=== PATIENT | female | born 1955 | race Caucasian/White ===

== ENCOUNTER 2019-06-05 00:10 | Inpatient (IN) ==
--- OUTSIDE RECORDS SUMMARY | 2019-06-05 01:03 | External Medical Summary | Continuity of Care Document ---
:1955 Author Name Tanya Marcum, Provider Address Unavailable Unavailable , Care Team Providers Name Role Phone Non[facility]PG MJazzy, Provider Unavailable [email or web address] Unavailable Unavailable Unavailable Unavailable Problems Encounter for routine gynecological examination (V72.31) (Z0 1.419) Non-smoker (V49.89) (Z78.9) Inconclusive mammogram (793.82) (R92.2) Nephrolithiasis (592.0) (N20.0) Allergies and Adverse Reactions Codeine Derivatives (Allergy) Morphine Derivatives (Allergy) Medications Benicar 20 MG Oral Tablet Refills: 0 hydroCHLOROthiazide 12.5 MG Oral Tablet Refills: 0 Metoprolol Tartrate 50 MG Oral Tablet Refills: 0 Lipitor TABS Refills: 0 Zoloft TABS Refills: 0 Procedures History of Parathyroid Complete Parathyroidectomy Status: Completed History of Hysteroscopy With Resection For Intrauterine Poly p Status: Completed Removal Immunizations Immunizations not documented Family History natural daughter Family history of Thyroid Cancer Status: Active Father Family history of Prostate Cancer (V16.42) Status: Active Plan of Treatment Planned Observations Planned Goals not documented Results No Known Results Results not documented Encounters Appointment; Marcell Girard M.D. 18-Aug-2018 11:00 Encounter Diagnosis: Problem not documented
--- NOTE | 2019-06-05 01:11 | History & Physical Report ---
Date of Service June 05, 2019 Assessment & Plan (1) Vertigo: Ms. Irvin is a 64 year old female with a past medical history of hypertension, hyperlipidemia, and hyperparathyroidism who presents to [facility] as a direct transfer from [facility] for concern for CVA, after initially presenting there with vertigo, nausea and vomiting. ER course in [place]: 5mg IV Reglan, 1L NS bolus, 4mg IV Zofran Labs: WCC 7.7, Hgb 12.5, Platelets 221. Na 143, K 3.5, Cl 103, BUN 27, Creatinine 1.7, Glucose 159, Ca 9.2, AST 17, ALT 32, Albumin 3.8, Alk phos 134, Trop negative. Mg 1.8. Ammonia <11 TSH 3.64, Free T4 0.94 BNP negative Prothrombin time 11.8, INR 1, PTT 29.[address] chest - chronic bronchitis Noncontrast CT brain - WNL ECHO in 2016 - Normal LV function, grade 1 diastolic dysfunction Vertigo -CT head negative -concern for stroke initially given ?left sided facial droop -neuro examination normal, with the exception of b/l horizontal nystagmus -MRI brain and MRA head and neck WNL per statrad report -ddx: vestibular neuronitis, acute labyrinthitis, Meniere's -continue supportive care w/anti-emetics & IVF -trial of meclizine -4mg zofran IV q6h and 1L LR bolus ordered w/maintenance LR at 120 mls/hr x1 bag afterwards ?Acute Kidney Injury -creatinine 1.7 on admission, unsure of baseline -continue IVF hydration and recheck BMP in AM Cough -CT chest negative for infection -afebrile, normal WCC, no oxygen requirement -likely viral in etiology -continue prn albuterol Hypertension -continue home metoprolol -> pt states that she takes 50mg daily instead of BID -hold home olmesartan and HCTZ given ?ALESSANDRA and dehydration due to vomiting and diarrhea Hyperlipidemia -continue home atorvastatin Depression -continue home sertraline Code status: Full DVT Prophylaxis: SCDs Disposition: admit to telemetry (2) Vomiting: (3) Hypertension: (4) Hyperlipidemia: (5) Cough: (6) Elevated serum creatinine: History of Present Illness Chief Complaint: Vertigo Primary Care Provider: Estevan Cuba Ms. Irvin is a 64 year old female with a past medical history of hypertension, hyperlipidemia, and hyperparathyroidism who presents to [facility] as a direct transfer from [facility] for concern for CVA. She presented to [facility] for vertigo, starting 2 hours prior to her arrival. [place] experienced the sudden onset of vertigo, at approximately 7:30PM on 06/04/2019. She states that her symptoms have not abated since. She endorses several episodes of vomiting in conjunction with the vertigo. She reports that her symptoms are worse with movement or when she has her eyes open. She also reports 3 episodes of diarrhea today, in addition to abdominal cramping, which have since resolved. She denies a past history of vertigo. She denies focal weakness, difficulty with speech,hearing or tinnitus. She reports she has been unwell recently with a productive cough, for which she is using her albuterol inhaler. She denies fever or chills. She denies any recent tick bites. Per her family, there was question of a potential left sided facial droop while she was in the [place] ED, however her family states that they did not feel that she had a facial droop. She denies any recent travel, or consumption of new foods. PMHX: hypertension, hyperlipidemia, depression and hyperparathyroidism PSHx: D&C, Removal of 2 parathyroid glands Medications: Atorvastatin 40mg daily, HCTZ 12.5mg daily, 50mg metoprolol tartrate BID, 40mg Olmesartan daily, 50mg Sertraline daily Allergies: Morphine SHx: Non-smoker, infrequent alcohol usage, does not use recreational drugs. Allergies Allergy/AdvReac Type Severity Reaction Status Date / Time morphine Allergy Unknown Verified 06/05/19 01:47 Home Medications Home Medications Medication Instructions Recorded Confirmed Type atorvastatin 40 mg PO DAILY 06/05/19 06/05/19 History hydrochlorothiazide 12.5 mg PO DAILY 06/05/19 06/05/19 History metoprolol tartrate [Lopressor] 50 mg PO BID 06/05/19 06/05/19 History sertraline [Zoloft] 50 mg PO DAILY 06/05/19 06/05/19 History Past Med/Surg History Medical History Hyperlipidemia Hypertension Social History Communication Ability: Effective Court Deputy Required: No Beliefs That Will Affect Care: None Current Living Situation: Spouse Feels Safe at Home: Yes Safety Concerns: Feels Safe At This Time Smoking Status: Never smoker Hx Alcohol Use: Yes Hx Substance Use: No Review of Systems Constitutional: no fever and no chills Ear, Nose, Mouth, Throat: + dizziness and + dry mouth; no tinnitus and no sore throat Respiratory: + cough, + chest congestion and + sputum production; no dyspnea and no wheezing Cardiovascular: no chest pain, no lightheadedness, no syncope, no edema and no calf pain Gastrointestinal: + abdominal pain, + nausea, + vomiting and + diarrhea/loose stools Genitourinary: no dysuria Integumentary: no rash Physical Exam Constitutional: WD/WN, vitals as above cooperative uncomfortable, keeping her eyes closed. Vomited x1 during my examination Eyes: PERRL, conjunctivae normal, anicteric sclerae ENMT: external ear and nose normal, oropharynx normal (dry mucous membranes) Respiratory: normal respiratory effort, lungs clear to auscultation Cardiovascular: RRR, no murmur, no edema Gastrointestinal (Abdomen): normal bowel sounds, soft, nontender, no hepatosplenomegaly Musculoskeletal: no cyanosis or clubbing, extremities motor strength 5/5 Skin: no rashes, warm and dry Neurologic: PERRL, EOMI, accommodation nl, no face palsy, no dysarthria moves all extremities and awake Motor/Sensory: no tremor and no pronator drift finger to nose test normal horizontal nystagmus bilaterally Cranial nerves 2-12 otherwise grossly intact Psychiatric: A+Ox3, euthymic affect Code Status & VTE Plan VTE Prophylaxis Plan VTE Prophylaxis will be ordered: Yes Supervising Physician Co-Signing Physician Notes Patient was seen and examined by me personally. I reviewed the chart, the orders and discussed the case in detail with Dr. Tamra Luciano MD. I read this H&P and agree with its contents to entirety. PG Care Time/CCT Total # of Minutes Spent Total Time Spent with Patient: Total time spent is greater than 50% in coordination of care (as documented) at patient's floor/unit and/or counseling patient: Resident Activity Tracking Resident Involvement: Resident Care Provided Care Provided: Adult Hospital Medicine
[2019-06-05] MEDS ORDERED: ACETAMINOPHEN 325 MG TAB PO PRN (01:21)
[2019-06-05] MEDS ORDERED: ONDANSETRON INJ 2 MG/ML 2 ML VIAL ONE (03:00)
[2019-06-05] MEDS ORDERED: LACTATED RINGER'S 1,000 ML IV ONE (03:12)
[2019-06-05] MEDS ORDERED: MECLIZINE HCL 25 MG TAB PO PRN (03:30)
[2019-06-05] MEDS ORDERED: LACTATED RINGER'S 1,000 ML IV SCH (03:30)
[2019-06-05] MEDS ORDERED: ONDANSETRON INJ 2 MG/ML 2 ML VIAL IV PRN (03:30)
[2019-06-05] MEDS ORDERED: GADOBUTROL 65ML VIAL IV PRN (03:37)
[2019-06-05] MEDS ORDERED: ALBUTEROL HFA 8 GM INHALER INH PRN (03:44)
[2019-06-05 06:20] LABS: Basophils # (auto) 0.01 K/uL (0-0.2); Basophils % (auto) 0.1 %; Eosinophils # (auto) 0.01 K/uL (0-0.5); Eosinophils % (auto) 0.1 %; Hematocrit (blood only) 34.6 % (37-47); Hemoglobin 11.1 g/dL (12.0-16.0); Immature Granulocytes # (auto) 0.01 K/uL (0.00-0.02); Immature Granulocytes % (auto) 0.1 %; Lymphocytes # (auto) 0.95 K/uL (1.2-3.4); Lymphocytes % (auto) 11.2 %; Mean Corpuscular Hemoglobin 27.7 pg (25-34); Mean Corpuscular Hgb Conc 32.1 g/dL (32-36); Mean Corpuscular Volume 86.3 fL (80-100); Monocytes # (auto) 0.42 K/uL (0.11-0.59); Neutrophils # (auto) 7.05 K/uL (1.4-6.5); Neutrophils % (auto) 83.5 %; Platelet Count 184 K/uL (130-400); RDW Coefficient of Variation 14.8 % (11.5-14.5); RDW Standard Deviation 47.2 fL (36.4-46.3); Red Blood Count 4.01 M/uL (4.2-5.4); White Blood Count 8.45 K/uL (4.8-10.8)
--- NOTE | 2019-06-05 06:51 | Magnetic Resonance Report ---
NECK MRA HISTORY: Facial droop, vertigo. Suspected stroke. Vomiting. TECHNIQUE: Parc-sm-nrqzre and gadolinium-enhanced MRA of the neck was performed both before and after the intravenous administration of contrast. All measurements were calculated based on NASCET criteri a. COMPARISON STUDY: None. FINDINGS: The aortic arch and proximal great vessels are widely patent. There is no significant sten osis, occlusion, or dissection identified within the bilateral common carotid, internal carotid, or v ertebral arteries. IMPRESSION: No significant stenosis, occlusion, or dissection identified within the carotid or vertebral arteries . Electronically signed by: Beni Chopra M.D. 06/05/2019 6:50 AM
[2019-06-05 06:57] LABS: Albumin Level 3.3 gm/dl (3.4-5.0); BUN Creatinine Ratio 15.3 (10-20); Calcium 8.5 mg/dl (8.5-10.1); Creatinine Clr Calc Pharmacy 44.7 ml/min; Est GFR (African American) 49.7; Est GFR (Non-African American) 42.9; Potassium 3.7 mmol/L (3.5-5.1)
[2019-06-05 06:59] LABS: Bilirubin,Total 0.4 mg/dl (0.2-1); Globulin 3.2 gm/dl (2.5-4.0); Total Protein 6.5 gm/dl (6.4-8.2)
--- NOTE | 2019-06-05 07:23 | Magnetic Resonance Report ---
MR angio head wo con HISTORY: 64 years-old Female facial droop, vertigo, r/o CVA . Acute strokelike symptoms COMPARISON: MRI brain 06/05/2019 TECHNIQUE: MRA of the head was obtained without the use of IV contrast utilizing 3-D [id number] s equencing with MIP reformats. All measurements were obtained according to NASCET criteria. FINDINGS: Imaged bilateral internal carotid arteries are widely patent and unremarkable. The middle and anterio r cerebral arteries also appear normal and patent. The anterior communicating artery appears normal. The imaged bilateral vertebral arteries, basilar and posterior cerebral arteries appear patent. No an eurysm, dissection, high-grade stenosis or proximal branch occlusion. IMPRESSION: Unremarkable MRA of the head. The above report was generated using voice recognition software. It may contain grammatical, syntax o r spelling errors. Electronically signed by: Kurtis Dumont M.D. 06/05/2019 7:21 AM
--- NOTE | 2019-06-05 07:56 | Magnetic Resonance Report ---
MR brain wo/w con CLINICAL HISTORY: 64 years-old Female presenting with vertigo, nausea, history of recent fall with he ad injury. TECHNIQUE: Multisequence, multiplanar MR imaging of the brain was performed before and after the admi nistration of intravenous contrast. IV contrast: 8.3 mL of Gadavist. COMPARISON: None. FINDINGS: Localizer images: Unremarkable. Bone marrow signal intensity within the calvarium within normal limits. Normal midline sagittal structures. Ventricles and sulci normal in size. No mass effect or midline sh ift. No restricted diffusion or hemorrhage. Brain parenchyma normal in appearance with preserved borges -white differentiation. No abnormal parenchymal enhancement. No extra-axial fluid collection. T2 skull base flow voids preserved. IMPRESSION: 1. No acute intracranial pathology. No abnormal enhancement. These findings were discussed with Dr. Luciano by Dr. Barcenas on 06/05/2019 3:27 AM. Electronically signed by: Addy Gregorio M.D. 06/05/2019 7:54 AM
[2019-06-05] MEDS ORDERED: INFLUENZA ADMINISTRATION CHARGE ONE (08:15)
[2019-06-05] MEDS ORDERED: INFLUENZA VIRUS QUAD VACCINE 0.5 ML SYR IM ONE (08:15)
[2019-06-05] MEDS: METOPROLOL TARTRATE 50 MG TAB PO SCH (08:42)
[2019-06-05] MEDS: ATORVASTATIN 40 MG TAB PO SCH (08:42)
[2019-06-05] MEDS: SERTRALINE HCL 50 MG TABLET PO SCH (08:42)
--- NOTE | 2019-06-05 09:25 | Hospitalist Progress Note ---
Date of Service June 05, 2019 Assessment & Plan (1) Vertigo: Continue admit to PCU on telemetry for vestibular neuronitis versus acute labyrinthitis or Mnire disease CT head negative neuro examination normal, with the exception of b/l horizontal nystagmus MRI brain and MRA head and neck WNL per statrad report Continue meclizine 25 mg 4 times daily Continue supportive care w/anti-emetics & IVF 4mg zofran IV q6h and 1L LR bolus ordered w/maintenance LR at 120 mls/hr x1 bag afterwards Present on Admission?: Yes (2) Vomiting: Above (3) Hypertension: Continue home metoprolol -> pt states that she takes 50mg daily instead of BID Hold home olmesartan and HCTZ given ALESSANDRA and dehydration due to vomiting and diarrhea Present on Admission?: Yes (4) Hyperlipidemia: Continue home dose of atorvastatin Present on Admission?: Yes (5) Cough: Cough is related to pneumonia Started treatment for community-acquired pneumonia with ceftriaxone and doxycycline Duo nebs every 4 hours Advair twice daily Present on Admission?: Yes (6) Acute kidney injury: Avoid nephrotoxic agents. Monitor creatinine and GFR. Present on Admission?: Yes Subjective Patient seen and examined at the bedside Patient seen and examined at the bedside. She arrived here from [facility] with a concern for CVA after initially presented with vertigo, nausea and vomiting. CT of the head was negative and initial concern of left-sided facial droop was cleared because patient neurological exam continued to be normal for exception of having horizontal nystagmus. MRI of the brain and neck was also within normal limits. At this morning I received a critical value from the [facility] report patient also had an CT pneumonia versus atelectasis. Patient reports as soon as she opens her eyes he starts feeling nausea and have spinning. Patient denies fever, chills, chest pain, shortness of breath, abdominal pain, frequency, urgency. Review of Systems Review of Systems: All systems reviewed & are unremarkable except as noted in HPI & below Physical Exam Constitutional: WD/WN, vitals as above well developed Eyes: PERRL, conjunctivae normal, anicteric sclerae Horizontal nystagmus ENMT: external ear and nose normal, oropharynx normal Neck: trachea midline, no thyromegaly Respiratory: Auscultation: + crackles (Right lower lobe) and + wheezes Cardiovascular: Heart Sounds: normal S1, normal S2 and + murmur Vessels: dorsalis pedis pulses present Gastrointestinal (Abdomen): normal bowel sounds, soft, nontender, no hepatosplenomegaly Musculoskeletal: no cyanosis or clubbing, extremities motor strength 5/5 Skin: no rashes, warm and dry Neurologic: patellar DTR's 2+ bilat, sensation intact Psychiatric: A+Ox3, euthymic affect Lymphatic: no cervical or axillary lymphadenopathy Results & Data Vital Signs (Past 12 Hours) Vital Signs Temp Pulse Resp BP Pulse Ox Pulse Ox 06/05/19 06:54 36.8 C 65 18 156/80 H 99 06/05/19 04:00 95 06/05/19 03:44 36.9 C 79 16 159/82 H 91 06/05/19 01:00 36.9 C 79 20 170/93 H 91 PG Care Time/CCT Total # of Minutes Spent Total Time Spent with Patient: Total time spent is greater than 50% in coordination of care (as documented) at patient's floor/unit and/or counseling patient:
[2019-06-05] MEDS ORDERED: SODIUM CHLORIDE 0.9% 1000ML 1,000 ML IV SCH (09:30)
[2019-06-05] MEDS: MECLIZINE HCL 25 MG TAB PO SCH ×4 (09:50→21:46)
[2019-06-05] MEDS: cefTRIAXone SODIUM 2,000 MG in DEXTROSE 5% 50 ML IV SCH (09:50)
[2019-06-05] MEDS: DOXYCYCLINE HYCLATE 100 MG in DEXTROSE 5% 100 ML IV SCH ×2 (10:52→21:56)
[2019-06-05] MEDS: ALBUT/IPRATROP 3MG/0.5MG NEB 3 ML VIAL NEB SCH ×2 (19:29→23:18)
[2019-06-05] MEDS: FLUTICASONE/SALMETEROL 250/50 (ADVAIR) 14 PUFF/1 INHALER INH SCH (21:47)
[2019-06-05] MEDS: HEPARIN SOD 5,000 UNIT/0.5 ML VIAL SQ SCH (21:48)
[2019-06-06] MEDS: ALBUT/IPRATROP 3MG/0.5MG NEB 3 ML VIAL NEB SCH ×6 (03:09→23:07)
[2019-06-06 07:11] LABS: Basophils # (auto) 0.01 K/uL (0-0.2); Basophils % (auto) 0.2 %; Eosinophils # (auto) 0.09 K/uL (0-0.5); Eosinophils % (auto) 1.6 %; Hematocrit (blood only) 36.3 % (37-47); Hemoglobin 11.2 g/dL (12.0-16.0); Immature Granulocytes # (auto) 0.02 K/uL (0.00-0.02); Immature Granulocytes % (auto) 0.3 %; Lymphocytes # (auto) 1.77 K/uL (1.2-3.4); Lymphocytes % (auto) 30.9 %; Mean Corpuscular Hemoglobin 27.6 pg (25-34); Mean Corpuscular Hgb Conc 30.9 g/dL (32-36); Mean Corpuscular Volume 89.4 fL (80-100); Mean Platelet Volume 9.8 fL (7.4-10.4); Monocytes # (auto) 0.34 K/uL (0.11-0.59); Monocytes % (auto) 5.9 %; Neutrophils % (auto) 61.1 %; Platelet Count 183 K/uL (130-400); RDW Coefficient of Variation 15.3 % (11.5-14.5); RDW Standard Deviation 49.7 fL (36.4-46.3); Red Blood Count 4.06 M/uL (4.2-5.4); White Blood Count 5.73 K/uL (4.8-10.8)
[2019-06-06 07:40] LABS: Albumin Level 3.2 gm/dl (3.4-5.0); BUN Creatinine Ratio 12.5 (10-20); Calcium 8.6 mg/dl (8.5-10.1); Creatinine Clr Calc Pharmacy 44.7 ml/min; Est GFR (African American) 49.7; Est GFR (Non-African American) 42.9; Potassium 3.3 mmol/L (3.5-5.1)
[2019-06-06 07:43] LABS: Bilirubin,Total 0.4 mg/dl (0.2-1); Globulin 3.2 gm/dl (2.5-4.0); Total Protein 6.4 gm/dl (6.4-8.2)
[2019-06-06] MEDS: SERTRALINE HCL 50 MG TABLET PO SCH (08:54)
[2019-06-06] MEDS: MECLIZINE HCL 25 MG TAB PO SCH ×4 (08:54→20:40)
[2019-06-06] MEDS: METOPROLOL TARTRATE 50 MG TAB PO SCH (08:55)
[2019-06-06] MEDS: HEPARIN SOD 5,000 UNIT/0.5 ML VIAL SQ SCH ×2 (08:55→20:40)
[2019-06-06] MEDS: FLUTICASONE/SALMETEROL 250/50 (ADVAIR) 14 PUFF/1 INHALER INH SCH ×2 (08:55→20:40)
[2019-06-06] MEDS: ATORVASTATIN 40 MG TAB PO SCH (08:56)
[2019-06-06] MEDS: cefTRIAXone SODIUM 2,000 MG in DEXTROSE 5% 50 ML IV SCH (09:03)
[2019-06-06] MEDS: DOXYCYCLINE HYCLATE 100 MG in DEXTROSE 5% 100 ML IV SCH ×2 (12:16→23:45)
[2019-06-06] MEDS ORDERED: POTASSIUM CHLORIDE 20 MEQ TABCR PO STA (18:04)
[2019-06-06] MEDS ORDERED: SODIUM CHLORIDE 0.45 % 500 ML IV SCH (18:15)
--- NOTE | 2019-06-06 18:16 | Hospitalist Progress Note ---
Date of Service June 06, 2019 Assessment & Plan (1) Vertigo: Continue admit to PCU on telemetry for vestibular neuronitis versus acute labyrinthitis or Mnire disease Patient has slight hyponatremia of sodium 146. We will give half-normal saline 80 mils per hour for 500 mils. Recheck sodium at 2200 CT head negative neuro examination normal, with the exception of b/l horizontal nystagmus MRI brain and MRA head and neck WNL per statrad report Continue meclizine 25 mg 4 times daily Continue supportive care w/anti-emetics & IVF 4mg zofran IV q6h and 1L LR bolus ordered w/maintenance LR at 120 mls/hr x1 bag afterwards (2) Vomiting: Above (3) Hypertension: Continue home metoprolol -> pt states that she takes 50mg daily instead of BID Hold home olmesartan and HCTZ given ALESSANDRA and dehydration due to vomiting and diarrhea (4) Hyperlipidemia: Continue home dose of atorvastatin (5) Cough: Cough is related to pneumonia Started treatment for community-acquired pneumonia with ceftriaxone and doxycycline Duo nebs every 4 hours Advair twice daily (6) Acute kidney injury: Improving.Avoid nephrotoxic agents.Monitor creatinine and GFR. Subjective Patient seen and examined at the bedside. Patient is slowly improving. She said vertigo is little bit better, but she continues to have problems when she opens her eyes. Patient says the cough is improving and she is afebrile. Patient denies fever, chills, chest pain, shortness of breath, abdominal pain, frequency, urgency. Review of Systems Review of Systems: All systems reviewed & are unremarkable except as noted in HPI & below Physical Exam Constitutional: WD/WN, vitals as above well developed Eyes: + nystagmus Nystagmus ENMT: external ear and nose normal, oropharynx normal Neck: trachea midline, no thyromegaly Respiratory: Auscultation: + crackles (Right lower lobe) and + wheezes Cardiovascular: Heart Sounds: normal S1, normal S2 and + murmur Vessels: dorsalis pedis pulses present Gastrointestinal (Abdomen): normal bowel sounds, soft, nontender, no hepatosplenomegaly Musculoskeletal: no cyanosis or clubbing, extremities motor strength 5/5 Skin: no rashes, warm and dry Neurologic: patellar DTR's 2+ bilat, sensation intact Psychiatric: A+Ox3, euthymic affect Lymphatic: no cervical or axillary lymphadenopathy Results & Data Vital Signs (Past 12 Hours) Vital Signs Temp Pulse Resp BP BP Pulse Ox 06/06/19 16:53 174/84 H 06/06/19 15:56 36.8 C 72 18 179/93 H 91 06/06/19 15:07 85 18 95 06/06/19 12:16 37.0 C 63 20 133/81 93 06/06/19 11:20 68 16 95 06/06/19 08:05 36.8 C 72 16 152/74 H 93 06/06/19 06:56 75 16 90 PG Care Time/CCT Total # of Minutes Spent Total Time Spent with Patient: Total time spent is greater than 50% in coordination of care (as documented) at patient's floor/unit and/or counseling patient:
[2019-06-06 22:21] LABS: BUN Creatinine Ratio 12.1 (10-20); Calcium 8.9 mg/dl (8.5-10.1); Creatinine Clr Calc Pharmacy 40.3 ml/min; Potassium 3.3 mmol/L (3.5-5.1)
[2019-06-07] MEDS: ALBUT/IPRATROP 3MG/0.5MG NEB 3 ML VIAL NEB SCH ×6 (03:27→22:58)
[2019-06-07 06:43] LABS: Basophils # (auto) 0.03 K/uL (0-0.2); Basophils % (auto) 0.5 %; Eosinophils # (auto) 0.21 K/uL (0-0.5); Eosinophils % (auto) 3.6 %; Hematocrit (blood only) 35.6 % (37-47); Hemoglobin 11.1 g/dL (12.0-16.0); Immature Granulocytes # (auto) 0.03 K/uL (0.00-0.02); Immature Granulocytes % (auto) 0.5 %; Lymphocytes # (auto) 1.67 K/uL (1.2-3.4); Lymphocytes % (auto) 28.7 %; Mean Corpuscular Hemoglobin 27.8 pg (25-34); Mean Corpuscular Hgb Conc 31.2 g/dL (32-36); Mean Platelet Volume 10.1 fL (7.4-10.4); Monocytes # (auto) 0.45 K/uL (0.11-0.59); Monocytes % (auto) 7.7 %; Neutrophils # (auto) 3.43 K/uL (1.4-6.5); Platelet Count 183 K/uL (130-400); RDW Standard Deviation 49.2 fL (36.4-46.3); White Blood Count 5.82 K/uL (4.8-10.8)
[2019-06-07 07:05] LABS: Albumin Level 3.3 gm/dl (3.4-5.0); BUN Creatinine Ratio 11.3 (10-20); Calcium 8.7 mg/dl (8.5-10.1); Creatinine Clr Calc Pharmacy 45.4 ml/min; Est GFR (African American) 50.7; Est GFR (Non-African American) 43.7; Potassium 3.3 mmol/L (3.5-5.1)
[2019-06-07 07:08] LABS: Bilirubin,Total 0.3 mg/dl (0.2-1); Globulin 3.3 gm/dl (2.5-4.0); Total Protein 6.6 gm/dl (6.4-8.2)
[2019-06-07] MEDS: FLUTICASONE/SALMETEROL 250/50 (ADVAIR) 14 PUFF/1 INHALER INH SCH ×2 (08:41→20:37)
[2019-06-07] MEDS: ATORVASTATIN 40 MG TAB PO SCH (08:42)
[2019-06-07] MEDS: SERTRALINE HCL 50 MG TABLET PO SCH (08:42)
[2019-06-07] MEDS: HEPARIN SOD 5,000 UNIT/0.5 ML VIAL SQ SCH ×2 (08:42→20:38)
[2019-06-07] MEDS: MECLIZINE HCL 25 MG TAB PO SCH ×4 (08:42→20:38)
[2019-06-07] MEDS: METOPROLOL TARTRATE 50 MG TAB PO SCH (08:43)
[2019-06-07] MEDS: cefTRIAXone SODIUM 2,000 MG in DEXTROSE 5% 50 ML IV SCH (10:20)
[2019-06-07] MEDS: DOXYCYCLINE HYCLATE 100 MG in DEXTROSE 5% 100 ML IV SCH (11:29)
--- NOTE | 2019-06-07 16:40 | Hospitalist Progress Note ---
Date of Service June 07, 2019 Assessment & Plan (1) Vertigo: Continue admit to PCU on telemetry for vestibular neuronitis versus acute labyrinthitis or Mnire disease Patient has slight hyponatremia of sodium 146. We will give half-normal saline 80 mils per hour for 500 mils. Recheck sodium at 2200 CT head negative neuro examination normal, with the exception of b/l horizontal nystagmus MRI brain and MRA head and neck WNL per statrad report Continue meclizine 25 mg 4 times daily Continue supportive care w/anti-emetics & IVF 4mg zofran IV q6h and 1L LR bolus ordered w/maintenance LR at 120 mls/hr x1 bag afterwards Started physical therapy for vertigo DVT prophylaxis: Pain 5000 units subcu every 12 hours Full code (2) Vomiting: Above (3) Hypertension: Continue home metoprolol -> pt states that she takes 50mg daily instead of BID Hold home olmesartan and HCTZ given ALESSANDRA and dehydration due to vomiting and diarrhea (4) Hyperlipidemia: Continue home dose of atorvastatin (5) Cough: Cough is related to pneumonia Started treatment for community-acquired pneumonia with ceftriaxone and doxycycline Duo nebs every 4 hours Advair twice daily (6) Acute kidney injury: Improving.Avoid nephrotoxic agents.Monitor creatinine and GFR. (7) Hypokalemia: Potassium 3.3. Replenished with 40 M EQ now. Started potassium 20 M EQ every morning. Present on Admission?: Yes Subjective Patient seen and examined at the bedside. Patient is slowly improving. Still present but little bit better. Patient says the cough is improving and she is a febrile. Patient denies fever, chills, chest pain, shortness of breath, abdominal pain, frequency, urgency. Good p.o. intake. Review of Systems Review of Systems: All systems reviewed & are unremarkable except as noted in HPI & below Physical Exam Constitutional: WD/WN, vitals as above well developed Eyes: PERRL, conjunctivae normal, anicteric sclerae + nystagmus ENMT: external ear and nose normal, oropharynx normal Neck: trachea midline, no thyromegaly Respiratory: Auscultation: + crackles (Right lower lobe) and + wheezes Cardiovascular: Heart Sounds: normal S1, normal S2 and + murmur Vessels: dorsalis pedis pulses present Gastrointestinal (Abdomen): normal bowel sounds, soft, nontender, no hepatosplenomegaly Musculoskeletal: no cyanosis or clubbing, extremities motor strength 5/5 Skin: no rashes, warm and dry Neurologic: patellar DTR's 2+ bilat, sensation intact Psychiatric: A+Ox3, euthymic affect Lymphatic: no cervical or axillary lymphadenopathy Results & Data Vital Signs (Past 12 Hours) Vital Signs Temp Pulse Resp BP Pulse Ox 06/07/19 15:24 74 18 97 06/07/19 15:07 36.7 C 73 18 145/81 H 99 06/07/19 11:54 36.5 C 65 20 145/81 H 94 06/07/19 11:14 66 18 94 06/07/19 07:38 37.1 C 75 20 158/71 H 94 06/07/19 06:50 71 18 95 PG Care Time/CCT Total # of Minutes Spent Total Time Spent with Patient: Total time spent is greater than 50% in coordination of care (as documented) at patient's floor/unit and/or counseling patient:
[2019-06-07] MEDS ORDERED: POTASSIUM CHLORIDE 20 MEQ TABCR PO STA (16:41)
[2019-06-07] MEDS ORDERED: HydrALAZINE HCL 20 MG/ML VIAL IV PRN (20:23)
[2019-06-07] MEDS: DOXYCYCLINE HYCLATE 100 MG CAP PO SCH (20:38)
[2019-06-08] MEDS: ALBUT/IPRATROP 3MG/0.5MG NEB 3 ML VIAL NEB SCH ×6 (03:01→22:02)
[2019-06-08 06:56] LABS: Basophils # (auto) 0.02 K/uL (0-0.2); Basophils % (auto) 0.3 %; Eosinophils # (auto) 0.23 K/uL (0-0.5); Eosinophils % (auto) 3.9 %; Hematocrit (blood only) 36.3 % (37-47); Hemoglobin 11.3 g/dL (12.0-16.0); Immature Granulocytes # (auto) 0.02 K/uL (0.00-0.02); Immature Granulocytes % (auto) 0.3 %; Lymphocytes # (auto) 1.79 K/uL (1.2-3.4); Lymphocytes % (auto) 30.3 %; Mean Corpuscular Hemoglobin 27.7 pg (25-34); Mean Corpuscular Hgb Conc 31.1 g/dL (32-36); Monocytes # (auto) 0.47 K/uL (0.11-0.59); Neutrophils # (auto) 3.37 K/uL (1.4-6.5); Neutrophils % (auto) 57.2 %; Nucleated RBC # (auto) 0.02 K/uL (0-0); Nucleated RBC % (auto) 0.3 %; Platelet Count 174 K/uL (130-400); RDW Coefficient of Variation 15.3 % (11.5-14.5); RDW Standard Deviation 49.3 fL (36.4-46.3); Red Blood Count 4.08 M/uL (4.2-5.4)
[2019-06-08 07:35] LABS: Albumin Globulin Ratio 0.9 (0.9-2); Albumin Level 3.1 gm/dl (3.4-5.0); BUN Creatinine Ratio 15.3 (10-20); Bilirubin,Total 0.4 mg/dl (0.2-1); Calcium 8.9 mg/dl (8.5-10.1); Creatinine Clr Calc Pharmacy 43.3 ml/min; Est GFR (Non-African American) 41.4; Globulin 3.4 gm/dl (2.5-4.0); Potassium 3.9 mmol/L (3.5-5.1); Total Protein 6.5 gm/dl (6.4-8.2)
[2019-06-08] MEDS: POTASSIUM CHLORIDE 20 MEQ TABCR PO SCH (07:47)
[2019-06-08] MEDS: MECLIZINE HCL 25 MG TAB PO SCH ×4 (07:48→21:11)
[2019-06-08] MEDS: DOXYCYCLINE HYCLATE 100 MG CAP PO SCH ×2 (07:48→21:13)
[2019-06-08] MEDS: METOPROLOL TARTRATE 50 MG TAB PO SCH (07:48)
[2019-06-08] MEDS: SERTRALINE HCL 50 MG TABLET PO SCH (07:48)
[2019-06-08] MEDS: ATORVASTATIN 40 MG TAB PO SCH (07:49)
[2019-06-08] MEDS: HEPARIN SOD 5,000 UNIT/0.5 ML VIAL SQ SCH ×2 (07:49→21:12)
[2019-06-08] MEDS: FLUTICASONE/SALMETEROL 250/50 (ADVAIR) 14 PUFF/1 INHALER INH SCH ×2 (07:49→21:11)
[2019-06-08] MEDS: cefTRIAXone SODIUM 2,000 MG in DEXTROSE 5% 50 ML IV SCH (10:11)
[2019-06-08] MEDS: CEFDINIR 300 MG CAP PO SCH ×2 (11:38→21:12)
--- NOTE | 2019-06-08 17:54 | Hospitalist Progress Note ---
Date of Service June 08, 2019 Assessment & Plan (1) Vertigo: Continue admit to PCU on telemetry for vestibular neuronitis versus acute labyrinthitis or Mnire disease Hyponatremia improved to 143. CT head negative neuro examination normal, with the exception of b/l horizontal nystagmus MRI brain and MRA head and neck WNL per statrad report Continue meclizine 25 mg 4 times daily Continue supportive care w/anti-emetics & IVF 4mg zofran IV q6h and 1L LR bolus ordered w/maintenance LR at 120 mls/hr x1 bag afterwards Continue physical therapy for vertigo. Slowly improving. DVT prophylaxis: Pain 5000 units subcu every 12 hours Full code (2) Vomiting: Resolved (3) Hypertension: Continue home metoprolol -> pt states that she takes 50mg daily instead of BID Hold home olmesartan and HCTZ given ALESSANDRA and dehydration due to vomiting and diarrhea (4) Hyperlipidemia: Continue home dose of atorvastatin (5) Cough: Cough is related to pneumonia Continue ceftriaxone and doxycycline for CAP Duo nebs every 4 hours Advair twice daily (6) Acute kidney injury: Improving.Avoid nephrotoxic agents.Monitor creatinine and GFR. (7) Hypokalemia: Resolved. Potassium 3.9 today. Subjective Patient seen and examined at the bedside. Patient is slowly improving with PT OT. still present but little bit better. Patient denies fever, chills, chest pain, shortness of breath, abdominal pain, frequency, urgency. Good p.o. intake. Review of Systems Review of Systems: All systems reviewed & are unremarkable except as noted in HPI & below Physical Exam Constitutional: WD/WN, vitals as above well developed Eyes: PERRL, conjunctivae normal, anicteric sclerae + nystagmus ENMT: external ear and nose normal, oropharynx normal Neck: trachea midline, no thyromegaly Respiratory: Auscultation: + crackles (Right lower lobe) and + wheezes Cardiovascular: Heart Sounds: normal S1, normal S2 and + murmur Vessels: dorsalis pedis pulses present Gastrointestinal (Abdomen): normal bowel sounds, soft, nontender, no hepatosplenomegaly Musculoskeletal: no cyanosis or clubbing, extremities motor strength 5/5 Skin: no rashes, warm and dry Neurologic: patellar DTR's 2+ bilat, sensation intact Psychiatric: A+Ox3, euthymic affect Lymphatic: no cervical or axillary lymphadenopathy Results & Data Vital Signs (Past 12 Hours) Vital Signs Temp Pulse Resp BP Pulse Ox 06/08/19 15:21 90 20 93 06/08/19 15:15 36.8 C 77 18 154/91 H 93 06/08/19 11:52 37.2 C 86 19 149/87 H 91 06/08/19 11:20 78 18 98 06/08/19 07:04 75 18 98 06/08/19 07:01 36.6 C 71 18 126/77 92 PG Care Time/CCT Total # of Minutes Spent Total Time Spent with Patient: Total time spent is greater than 50% in coordination of care (as documented) at patient's floor/unit and/or counseling patient:
[2019-06-09] MEDS: ALBUT/IPRATROP 3MG/0.5MG NEB 3 ML VIAL NEB SCH ×3 (02:54→11:18)
[2019-06-09 06:59] LABS: Albumin Level 3.4 gm/dl (3.4-5.0); BUN Creatinine Ratio 19.8 (10-20); Calcium 9.2 mg/dl (8.5-10.1); Creatinine Clr Calc Pharmacy 44.3 ml/min; Est GFR (African American) 49.3; Est GFR (Non-African American) 42.5; Potassium 4.2 mmol/L (3.5-5.1)
[2019-06-09 07:01] LABS: Bilirubin,Total 0.5 mg/dl (0.2-1); Globulin 3.5 gm/dl (2.5-4.0); Total Protein 6.9 gm/dl (6.4-8.2)
[2019-06-09] MEDS: FLUTICASONE/SALMETEROL 250/50 (ADVAIR) 14 PUFF/1 INHALER INH SCH (08:06)
[2019-06-09] MEDS: ATORVASTATIN 40 MG TAB PO SCH (08:07)
[2019-06-09] MEDS: METOPROLOL TARTRATE 50 MG TAB PO SCH (08:07)
[2019-06-09] MEDS: POTASSIUM CHLORIDE 20 MEQ TABCR PO SCH (08:07)
[2019-06-09] MEDS: SERTRALINE HCL 50 MG TABLET PO SCH (08:07)
[2019-06-09] MEDS: MECLIZINE HCL 25 MG TAB PO SCH (08:07)
[2019-06-09] MEDS: CEFDINIR 300 MG CAP PO SCH (08:07)
[2019-06-09] MEDS: DOXYCYCLINE HYCLATE 100 MG CAP PO SCH (08:07)
[2019-06-09] MEDS: HEPARIN SOD 5,000 UNIT/0.5 ML VIAL SQ SCH (08:08)
[2019-06-09 11:27] VITALS: PULSE 79; TEMP 98.2; O2SAT 91
--- NOTE | 2019-06-09 11:53 | Hospitalist Progress Note ---
Date of Service June 09, 2019 Assessment & Plan (1) Vertigo: Patient requested to be discharged today she feels much better. 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 She will also follow-up with nephrology for polycystic kidney disease and kidney insufficiency within 2-3 weeks. Patient would need to follow-up with her primary care physician for uncontrolled hypertension within 7 days. Hydrochlorothiazide stopped due due to possible nephrotoxicity and started amlodipine 5 mg p.o. daily that needs to be titrated up.Continue metoprolol 50 mg p.o. every morning. For pneumonia patient will continue continue will continue oral antibiotics for 4 more days. Cefdinir 300 mg PO BID and Doxycycline 100 mg PO BID. Continue meclizine 25 mg 4 times daily Full code (2) Vomiting: Resolved (3) Hypertension: Continue home metoprolol -> pt states that she takes 50mg daily instead of BID Hold home olmesartan and HCTZ given ALESSANDRA .Started Amlodipine 5 mg p.o. daily. Titrate up amlodipine as needed with PCP. Repeat CBC and CMP next visit with PCP. (4) Hyperlipidemia: Continue home dose of atorvastatin (5) Cough: Cough is related to pneumonia Continue cefdinir and doxycycline for CAP Duo nebs every 4 hours Advair twice daily (6) Acute kidney injury: Improving.Avoid nephrotoxic agents.Monitor creatinine and GFR. (7) Hypokalemia: Resolved. Potassium 3.9 today. Subjective Patient seen and examined at the bedside. She requested to go home. She feels much better. Good p.o. intake. Improved cough. Patient denies fever, chills, chest pain, shortness of breath, abdominal pain, frequency, urgency. Good p.o. intake. Review of Systems Review of Systems: All systems reviewed & are unremarkable except as noted in HPI & below Physical Exam Constitutional: WD/WN, vitals as above well developed Eyes: PERRL, conjunctivae normal, anicteric sclerae + nystagmus ENMT: external ear and nose normal, oropharynx normal Neck: trachea midline, no thyromegaly Respiratory: Auscultation: + crackles (Right lower lobe) and + wheezes Cardiovascular: Heart Sounds: normal S1, normal S2 and + murmur Vessels: dorsalis pedis pulses present Gastrointestinal (Abdomen): normal bowel sounds, soft, nontender, no hepatospl enomegaly Musculoskeletal: no cyanosis or clubbing, extremities motor strength 5/5 Skin: no rashes, warm and dry Neurologic: patellar DTR's 2+ bilat, sensation intact Psychiatric: A+Ox3, euthymic affect Lymphatic: no cervical or axillary lymphadenopathy Results & Data Vital Signs (Past 12 Hours) Vital Signs Temp Pulse Resp BP Pulse Ox 06/09/19 11:26 36.8 C 79 18 162/92 H 91 06/09/19 11:18 74 16 93 06/09/19 07:34 37 C 76 18 161/88 H 95 06/09/19 07:21 89 16 93 06/09/19 04:05 36.8 C 87 18 121/68 94 06/09/19 02:55 105 H 18 91 PG Care Time/CCT Total # of Minutes Spent Total Time Spent with Patient: Total time spent is greater than 50% in coordination of care (as documented) at patient's floor/unit and/or counseling patient:
[2019-06-09 12:01] VITALS: BP 162/84
--- NOTE | 2019-06-09 17:48 | Discharge Summary ---
Date of Service June 09, 2019 Admission HPI Per Admitting Provider Ms. Irvin is a 64 year old female with a past medical history of hypertension, hyperlipidemia, and hyperparathyroidism who presents to [facility] as a direct transfer from [facility] for concern for CVA. She presented to [facility] for vertigo, starting 2 hours prior to her arrival. [place] experienced the sudden onset of vertigo, at approximately 7:30PM on 06/04/2019. She states that her symptoms have not abated since. She endorses several episodes of vomiting in conjunction with the vertigo. She reports that her symptoms are worse with movement or when she has her eyes open. She also reports 3 episodes of diarrhea today, in addition to abdominal cramping, which have since resolved. She denies a past history of vertigo. She denies focal weakness, difficulty with speech,hearing or tinnitus. She reports she has been unwell recently with a productive cough, for which she is using her albuterol inhaler. She denies fever or chills. She denies any recent tick bites. Per her family, there was question of a potential left sided facial droop while she was in the [facility], however her family states that they did not feel that she had a facial droop. She denies any recent travel, or consumption of new foods. PMHX: hypertension, hyperlipidemia, depression and hyperparathyroidism PSHx: D&C, Removal of 2 parathyroid glands Medications: Atorvastatin 40mg daily, HCTZ 12.5mg daily, 50mg metoprolol tartrate BID, 40mg Olmesartan daily, 50mg Sertraline daily Allergies: Morphine SHx: Non-smoker, infrequent alcohol usage, does not use recreational drugs. Principal Diagnosis none Discharge Exam Constitutional WD/WN, vitals as above well developed Eyes PERRL, conjunctivae normal, anicteric sclerae ENMT external ear and nose normal, oropharynx normal Neck trachea midline, no thyromegaly Respiratory normal respiratory effort, lungs clear to auscultation Cardiovascular RRR, no murmur, no edema Gastrointestinal (Abdomen) normal bowel sounds, soft, nontender, no hepatosplenomegaly Musculoskeletal no cyanosis or clubbing, extremities motor strength 5/5 Skin no rashes, warm and dry Neurologic patellar DTR's 2+ bilat, sensation intact Psychiatric A+Ox3, euthymic affect Lymphatic no cervical or axillary lymphadenopathy Discharge Data Allergies Allergy/AdvReac Type Severity Reaction Status Date / Time morphine Allergy Unknown Verified 06/05/19 01:47 Ordered Studies 06/05/19 01:21 MR angio head wo con Urgent MR angio neck wo/w con Urgent 06/05/19 01:27 MR brain wo/w con Urgent Hospital Course (1) Vertigo: Patient requested to be discharged today she feels much better. She will follow-up with her edi manager for 14 mm endometrial stripe stripe and to rule out possible malignancy which was seen on the CT scan of the abdomen pelvis within 2 weeks. She will also follow-up with nephrology for polycystic kidney disease and kidney insufficiency within 2-3 weeks. Patient would need to follow-up with her primary care physician for uncontrolled hypertension within 7 days. Hydrochlorothiazide stopped due due to possible nephrotoxicity and started amlodipine 5 mg p.o. daily that needs to be titrated up.Continue metoprolol 50 mg p.o. every morning. For pneumonia patient will continue continue will continue oral antibiotics for 4 more days. Cefdinir 300 mg PO BID and Doxycycline 100 mg PO BID. Continue meclizine 25 mg 4 times daily Full code (2) Vomiting: Resolved (3) Hypertension: Continue home metoprolol -> pt states that she takes 50mg daily instead of BID Hold home olmesartan and HCTZ given ALESSANDRA .Started Amlodipine 5 mg p.o. daily. Titrate up amlodipine as needed with PCP. Repeat CBC and CMP next visit with PCP. (4) Hyperlipidemia: Continue home dose of atorvastatin (5) Cough: Cough is related to pneumonia Continue cefdinir and doxycycline for CAP Duo nebs every 4 hours Advair twice daily (6) Acute kidney injury: Improving.Avoid nephrotoxic agents.Monitor creatinine and GFR. (7) Hypokalemia: Resolved. Potassium 3.9 today. 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 Felipe at Dr. Palomo Manzo office on 06/15/2019 at 9:10am. If this date and time does not work for you or if you have any questions, please call their office #[phone].) Diet: Heart Healthy and Low Sodium (2gm) Addtl Attending Provider Instructions: Use walker to ambulate . Please follow up with PCP in 1 week and repeat CBC and CMP. Follow up you kidney function at your visit with PCP. For endometrial thickening of your uterus please schedule appointment with your edi manager in next 2 weeks. We also recommended to see fuel cell repairer as outpatient and follow up on management of polycystic kidney and your renal function. Ypu will continue oral antibiotics for 4 more days. Cefdinir 300 mg PO BID and Doxycycline 100 mg PO BID. Pending Studies at Discharge: No Stand-Alone Forms: My [facility] [employer], Smoking Cessation Medications and DC Order Prescriptions: New cefdinir 300 mg Capsule 300 mg PO BID Qty: 8 RF: 0 doxycycline hyclate 100 mg Capsule 100 mg PO BID Qty: 8 RF: 0 albuterol sulfate [Ventolin HFA] 90 mcg/actuation Hfa Aerosol Inhaler 2 puff inhalation Q6H PRN (Reason: shortness of breath or wheezing) Qty: 8.5 RF: 0 fluticasone propion-salmeterol [Advair Diskus] 250-50 mcg/dose Blister With Device 1 puffs inhalation BID Qty: 60 RF: 0 meclizine 25 mg Tablet 25 mg PO QID Qty: 120 RF: 0 guaifenesin 400 mg tablet 400 mg PO TID Qty: 20 RF: 0 amlodipine 5 mg tablet 5 mg PO DAILY Qty: 30 RF: 0 Continued atorvastatin 40 mg Tablet 40 mg PO DAILY RF: 0 metoprolol tartrate [Lopressor] 50 mg Tablet 50 mg PO BID RF: 0 sertraline [Zoloft] 50 mg Tablet 50 mg PO DAILY RF: 0 Discontinued hydrochlorothiazide 12.5 mg Tablet 12.5 mg PO DAILY RF: 0 Discharge Orders: Discharge Order (Routine); Ordered 06/09/19 Ordered By: Isaak Thomason Admission Data Admit Date/Time: 06/05/19 01:00 Attending Provider: Isaak Thomason Admit Provider: Isaak Thomason Primary Care Provider: Palomo Manzo Other Providers: Dylan Eisenberg Other Interventions: Discharge Summary Assessment (RN) Last Done: 06/09/19 11:59 DC Date/Time DO NOT enter until pt leaves facility: 06/09/19 12:35
== END 2019-06-09 12:35 | disposition home or self-care (01) | DRG 149 ==
LOC: 2S 01:00 → SUATTDRO 01:00 → 2S 06-08 01:59

== ENCOUNTER 2024-02-09 19:33 | Observation (INO) ==
[2024-02-09 20:59] LABS: Albumin Globulin Ratio 1.7 (0.9-2); Albumin Level 4.5 gm/dl (3.4-5.0); BUN Creatinine Ratio 15.8 (10-20); Bilirubin,Total 0.6 mg/dl (0.2-1.0); Calcium 10.2 mg/dl (8.6-10.3); Creatinine Clr Calc Pharmacy 32.1 ml/min; Est GFR (Non-African American) 30.2 ml/min; Globulin 2.7 gm/dl (2.5-4.0); Magnesium 1.9 mg/dl (1.7-2.4); Potassium 4.7 mmol/L (3.5-5.1); Total Protein 7.2 gm/dl (6.0-8.3)
[2024-02-09 21:07] LABS: Basophils # (auto) 0.05 K/uL (0.00-0.20); Basophils % (auto) 0.7 %; Eosinophils # (auto) 0.27 K/uL (0.00-0.50); Hematocrit (blood only) 38.9 % (37.0-47.0); Hemoglobin 12.5 g/dl (12.0-16.0); Immature Granulocytes # (auto) 0.04 K/uL (0.01-0.20); Immature Granulocytes % (auto) 0.6 %; Lymphocytes # (auto) 1.41 K/uL (1.20-3.40); Mean Corpuscular Hemoglobin 28.5 pg (25.0-34.0); Mean Corpuscular Hgb Conc 32.1 g/dL (32.0-36.0); Mean Corpuscular Volume 88.6 fL (80.0-100.0); Mean Platelet Volume 10.9 fL (9.4-12.4); Monocytes # (auto) 0.47 K/uL (0.11-0.59); Neutrophils # (auto) 4.48 K/uL (1.40-6.50); Neutrophils % (auto) 66.7 %; Platelet Count 198 K/uL (130-400); RDW Coefficient of Variation 13.7 % (11.5-14.5); RDW Standard Deviation 44.5 fL (36.4-46.3); Red Blood Count 4.39 M/uL (4.20-5.40); White Blood Count 6.72 K/ul (4.8-10.8)
[2024-02-09 21:14] LABS: Thyroid Stimulating Hormone 1.977 uIu/ml (0.300-4.500)
[2024-02-09] MEDS: OPTIRAY 320 125ml IV ONE (21:15)
[2024-02-09] MEDS: HYDROmorphone INJ 0.5 MG/0.5 ML SYR IV STA (21:25)
[2024-02-09] MEDS: ONDANSETRON INJ 2 MG/ML 2 ML VIAL IV STA (21:26)
[2024-02-09 21:45] LABS: Appearance Urine Clear (Clear); Bilirubin Urine Negative (Negative); Blood Urine Negative (Negative); Color Urine Yellow; Glucose Urine UA Negative (Negative); Ketones Urine Negative (Negative); Leukocyte Esterase Urine Negative (Negative); Nitrite Urine Negative (Negative); Protein Urine Negative (Negative); Specific Gravity Urine 1.013 (1.000-1.030); Urobilinogen Urine Negative (Negative)
--- NOTE | 2024-02-09 23:37 | Emergency Department Note ---
Impression & Plan Chest pain, Back pain, Generalized weakness ED Provider Note NAME: MEDHAT MINER AGE: 68 SEX: Female INFORMANT: Patient ED PROVIDER(S): Michael Rangel MD CHIEF COMPLAINT: Chest and back pain PLAN: Disposition: Admitted Outpatient prescription management: none Referral: none MEDICAL DECISION MAKING: Patient presented because of chest and back pain. She also noted nausea and sudden onset of weakness. She described the pain as severe. She did have a murmur on examination. ECG did not show any obvious acute ischemia. Patient was given a small dose of Dilaudid of 0.25 mg and 4 mg of Zofran. Patient has an allergy to NSAIDs. She had an unremarkable CBC and chemistry panel. Patient was sent emergently for CT imaging of the chest to rule out dissection as well as other pathology given the severe back pain and chest pain. Cardiac troponin negative. CT imaging of the chest did not reveal any evidence of acute pathology. Specifically no dissection or pulmonary embolism was noted. On reassessment the patient was feeling better. Repeat cardiac troponin was ordered. Discussed options with the patient. She has not had a stress test recently. Given the profound nature of the episode discussed further management in the hospital for cardiac rule out. Patient and in agreement. Consultation was made with Dr. Pancho Castorena of the [facility] service. Patient was evaluated in the ER for further management. Care/management discussed with: cafeteria manager Level of care consideration(s): After review of the information above and other included data, I feel the patient requires escalation of care to admission Triage Nursing notes: reviewed and agree them. Vital Signs: reviewed and remarkable for no significant abnormalities Additional History obtained from: none Chronic Medical/Social Conditions affecting care: Hypertension Prior/ Outside/ External records reviewed: Prior cardiology visit record reviewed from this year. Patient was seen by Dr. Davis. Patient does have a systolic ejection murmur. Differential Diagnosis: Cardiac ischemia, aortic dissection, pulmonary embolism, pneumothorax, pneumonia, pericarditis, myocarditis, esophageal rupture, GERD, cholecystitis, pancreatitis, musculoskeletal, as well as other pathologies. b Diagnostics, independently interpreted by me: ECG: Twelve-lead ECG reveals a normal sinus rhythm at 67 bpm. No evidence of ST elevation or depression. Cardiac Monitoring: Cardiac monitoring ordered by me: The patient was placed on continuous cardiac monitoring and observed. It revealed a normal sinus rhythm at 63 beats per minute without ectopy or evidence of dysrhythmia. Medical decision rules: none Imaging studies: CT dissection study reveals no evidence of aortic dissection, pneumonia, or pulmonary embolism. I refer you to the EMR for further details. HPI: 68 year old Female arrives for evaluation of chest and back pain. Patient states that she was sitting down at her camper this evening and felt discomfort in her upper back. She noted some back discomfort for the last few days but then tonight it suddenly worsened and she also had chest pain. Patient states that she got very nauseated. Rated the pain as a 9 out of 10. Patient tried to get up but was unable to. is present and helps by stating that she was too weak to get up with the episode. Patient felt lightheaded. No prior history of the same. Pt denies LOC, headache, fevers, chills, diaphoresis, visual changes, neck pain, breathing difficulties, vomiting, abdominal pain, lower back pain, melena, hematochezia, urinary symptoms, numbness, focal weakness, lymphadenopathy, rash, or other complaints. PAST MEDICAL HISTORY: See Below, hypertension PAST SURGICAL HISTORY: See Below, SOCIAL HISTORY: See Below, HOME MEDICATIONS: See Below ALLERGIES: See Below VITALS: See Below PHYSICAL EXAMINATION: GENERAL: Awake, alert, nontoxic-appearing, in no distress HENT: Normocephalic, atraumatic. Oropharynx unremarkable. EYES: Normal conjunctiva. Sclera non-icteric. NECK: Inspection normal. Non-tender. Supple. No nuchal rigidity. FROM. No masses. RESPIRATORY: Clear to auscultation. No wheezes. No rales. Normal respiratory effort. CARDIAC: Normal rate. Normal rhythm. No murmurs. No rubs. Extremities warm and well perfused. Pulses equal. No JVD. GI: Soft, non-distended. No tenderness to palpation. No rebound or guarding. No masses. RECTAL: Deferred. MUSCULOSKELETAL: Atraumatic. Chest examination reveals no tenderness. The back is symmetrical on inspection without obvious abnormality. There is no CVA tenderness to palpation. No joint edema. LOWER EXTREMITIES: Calves are equal size bilaterally and non-tender. No edema. No discoloration. NEURO: Normal sensorium. No sensory or motor deficits noted. SKIN: No rash or jaundice noted. PROCEDURES: none CRITICAL CARE: none OBSERVATION NOTE: none Past Med/Surg History Problem List (Updated 02/09/24 @ 23:37 by Michael Rangel MD) Generalized weakness (Acute) Back pain (Acute) Chest pain (Acute) Chronic renal insufficiency, stage III (moderate) Palpitations Endometrial hyperplasia with atypia Vertigo Hypertension Medical History (Updated 02/09/24 @ 23:37 by Michael Rangel MD) Hyperparathyroidism Arteriovenous malformation of liver Uterine polyp History of kidney stones Hiatal hernia Anxiety Sleep apnea Does not have CPAP yet, recent diagnosis. Asthma COLD TEMPERATURE INDUCED AND COUGHING INDUCED Hyperlipidemia Hypertension Surgical History Hx of colonoscopy History of cystoscopy X2 - ONE FOR STONE REMOVAL Hx of dilation and curettage X2 Hx of parathyroidectomy X2 Family History Father Prostate cancer Daughter Thyroid cancer Social History Smoking Status: Never smoker Second Hand Exposure: No; Do You Dip or Chew Tobacco: No; Hx Alcohol Use: Yes Alcohol type: wine Hx Substance Use: No Preferred Language: Danish Communication Ability: Effective Ordnance Officer Required: No Beliefs That Will Affect Care: None Current Living Situation: Spouse Feels Safe at Home: Yes Assistive Devices: Glasses Allergies Allergies Allergy/AdvReac Type Severity Reaction Status Date / Time celecoxib [From Celebrex] Allergy Intermediate Rash Unverified 01/04/24 08:55 codeine Allergy Unknown SICK AND Verified 01/04/24 08:55 LOOPY morphine Allergy Unknown SICK AND Verified 01/04/24 08:55 LOOPY amlodipine Allergy Verified 01/04/24 08:55 lidocaine AdvReac Intermediate Heart Unverified 01/04/24 08:55 Palpitations Home Meds Home Medications Medication Instructions Recorded Confirmed ropinirole 0.25 mg tablet 0.5 mg PO QPM 07/02/20 01/04/24 clonidine 0.2 mg/24 hr weekly 0.2 mg transdermal WK 10/27/21 01/04/24 transdermal patch gabapentin 300 mg capsule 300 mg PO HS 10/27/21 01/04/24 losartan 50 mg tablet 50 mg PO BID 10/27/21 01/04/24 buspirone 5 mg tablet 5 mg PO BID 12/20/23 01/04/24 spironolactone 25 mg tablet 25 mg PO DAILY 12/20/23 01/04/24 Previous Rx's Medication Instructions Recorded clonidine HCl 0.1 mg tablet 0.1 mg PO BID PRN hypertensive 12/20/23 emergency #20 tabs cholecalciferol (vitamin D3) 50 50 mcg PO DAILY #30 caps 01/04/24 mcg (2,000 unit) capsule Results & Data (ED) Vital Signs Vital Signs - 24 hr 02/09/24 19:37 02/09/24 19:59 02/09/24 20:40 Temperature 36.4 C L Temperature Source Temporal Artery Scan Pulse Rate 66 Pulse Rate [Apical] 61 Pulse Rhythm [Apical] Regular Pulse Strength [Apical] Normal Respiratory Rate 16 19 Respiratory Effort / Characteristics Non-Labored Spontaneous Respiratory Depth Normal Respiratory Pattern Regular Blood Pressure 181/96 H Blood Pressure [Right Arm] 171/94 H Blood Pressure Mean 124 Blood Pressure Mean [Right Arm] 119 Blood Pressure Position Sitting Pulse Oximetry 100 97 96 Oxygen Delivery Method Room Air Room Air Room Air Sepsis Recent Fever Within 48 Hours No Sepsis New/Unexplained Change in Mental Status N/A Sepsis Action Taken by Nursing No Action Required 02/09/24 21:25 02/09/24 21:57 02/09/24 22:54 Temperature Temperature Source Pulse Rate 59 L Pulse Rate [Apical] 76 63 Pulse Rhythm [Apical] Regular Regular Pulse Strength [Apical] Normal Normal Respiratory Rate 19 19 Respiratory Effort / Characteristics Non-Labored Spontaneous Non-Labored Spontaneous Respiratory Depth Normal Normal Respiratory Pattern Regular Regular Blood Pressure Blood Pressure [Right Arm] 171/91 H 147/80 H Blood Pressure Mean Blood Pressure Mean [Right Arm] 117 102 Blood Pressure Position Pulse Oximetry 100 97 Oxygen Delivery Method Room Air Room Air Sepsis Recent Fever Within 48 Hours Sepsis New/Unexplained Change in Mental Status Sepsis Action Taken by Nursing 02/09/24 23:00 02/09/24 23:04 02/09/24 23:30 Temperature Temperature Source Pulse Rate 61 67 Pulse Rate [Apical] 63 Pulse Rhythm [Apical] Pulse Strength [Apical] Respiratory Rate 16 18 16 Respiratory Effort / Characteristics Non-Labored Spontaneous Respiratory Depth Normal Respiratory Pattern Regular Blood Pressure 112/75 125/68 Blood Pressure [Right Arm] 112/75 Blood Pressure Mean 87 87 Blood Pressure Mean [Right Arm] 87 Blood Pressure Position Pulse Oximetry 95 97 97 Oxygen Delivery Method Room Air Room Air Room Air Sepsis Recent Fever Within 48 Hours Sepsis New/Unexplained Change in Mental Status Sepsis Action Taken by Nursing 02/10/24 00:00 02/10/24 00:27 02/10/24 01:00 Temperature Temperature Source Pulse Rate 56 L 56 L 54 L Pulse Rate [Apical] Pulse Rhythm [Apical] Pulse Strength [Apical] Respiratory Rate 12 14 13 Respiratory Effort / Characteristics Respiratory Depth Respiratory Pattern Blood Pressure 125/78 133/78 126/78 Blood Pressure [Right Arm] Blood Pressure Mean 93 96 94 Blood Pressure Mean [Right Arm] Blood Pressure Position Pulse Oximetry 95 94 94 Oxygen Delivery Method Room Air Room Air Room Air Sepsis Recent Fever Within 48 Hours Sepsis New/Unexplained Change in Mental Status Sepsis Action Taken by Nursing 02/10/24 01:33 02/10/24 02:03 Temperature Temperature Source Pulse Rate 61 62 Pulse Rate [Apical] Pulse Rhythm [Apical] Pulse Strength [Apical] Respiratory Rate 18 20 Respiratory Effort / Characteristics Respiratory Depth Respiratory Pattern Blood Pressure 135/79 140/79 Blood Pressure [Right Arm] Blood Pressure Mean 97 99 Blood Pressure Mean [Right Arm] Blood Pressure Position Pulse Oximetry 96 97 Oxygen Delivery Method Room Air Room Air Sepsis Recent Fever Within 48 Hours Sepsis New/Unexplained Change in Mental Status Sepsis Action Taken by Nursing Laboratory Data 02/09/24 20:00 02/09/24 20:00 Lab Results 02/09/24 02/09/24 02/10/24 Range/Units 20:00 Unknown 01:34 WBC 6.72 (4.8-10.8) K/ul RBC 4.39 (4.20-5.40) M/uL Hgb 12.5 (12.0-16.0) g/dl Hct 38.9 (37.0-47.0) % MCV 88.6 (80.0-100.0) fL MCH 28.5 (25.0-34.0) pg MCHC 32.1 (32.0-36.0) g/dL RDW Std Deviation 44.5 (36.4-46.3) fL RDW Coeff of Monie 13.7 (11.5-14.5) % Plt Count 198 (130-400) K/uL MPV 10.9 (9.4-12.4) fL Immature Gran % (Auto) 0.6 % Neut % (Auto) 66.7 % Lymph % (Auto) 21.0 % [place] % (Auto) 7.0 % Eos % (Auto) 4.0 % Baso % (Auto) 0.7 % Neut # (Auto) 4.48 (1.40-6.50) K/uL Lymph # (Auto) 1.41 (1.20-3.40) K/uL [place] # (Auto) 0.47 (0.11-0.59) K/uL Eos # (Auto) 0.27 (0.00-0.50) K/uL Baso # (Auto) 0.05 (0.00-0.20) K/uL Immature Gran # (Auto) 0.04 (0.01-0.20) K/uL ESR 13 (0-30) mm/hr Sodium 141 (136-145) mmol/L Potassium 4.7 (3.5-5.1) mmol/L Chloride 106 (98-107) mmol/L Carbon Dioxide 27 (21-32) mmol/L Anion Gap 8 (3-11) BUN 27 H (6-23) mg/dl Creatinine 1.71 H (0.6-1.2) mg/dl Est Cr Clr Drug Dosing 32.1 ml/min Est GFR ( Amer) 35.0 ml/min Est GFR (Non-Af Amer) 30.2 ml/min BUN/Creatinine Ratio 15.8 (10-20) Glucose 99 (70-99(Fasting)) mg/dl Calcium 10.2 (8.6-10.3) mg/dl Magnesium 1.9 (1.7-2.4) mg/dl Total Bilirubin 0.6 (0.2-1.0) mg/dl AST 19 (13-39) U/L ALT 21 (7-52) U/L Alkaline Phosphatase 141 H (34-104) U/L Troponin I High Sens 3.0 3.3 (0-14) pg/ml Total Protein 7.2 (6.0-8.3) gm/dl Albumin 4.5 (3.4-5.0) gm/dl Globulin 2.7 (2.5-4.0) gm/dl Albumin/Globulin Ratio 1.7 (0.9-2) TSH 1.977 (0.300-4.500) uIu/ml Urine Color Yellow Urine Appearance Clear (Clear) Urine pH 8.0 H (4.5-7.5) Ur Specific [place] 1.013 (1.000-1.030) Urine Protein Negative (Negative) Urine Glucose (UA) Negative (Negative) Urine Ketones Negative (Negative) Urine Blood Negative (Negative) Urine Nitrite Negative (Negative) Urine Bilirubin Negative (Negative) Urine Urobilinogen Negative (Negative) Ur Leukocyte Esterase Negative (Negative) Administered Medications Discontinued Medications Hydromorphone HCl (Hydromorphone Inj 0.5 Mg/0.5 Ml Syr) 0.25 mg IV NOW STA Stop: 02/09/24 20:49 Last Admin: 02/09/24 21:25 Dose: 0.25 mg Documented By: ANDREA Ioversol (Optiray 320 125ml) 118 ml IV ONCE ONE Stop: 02/09/24 21:15 Last Admin: 02/09/24 21:15 Dose: 118 ml Documented By: NILE Ondansetron HCl (Ondansetron Inj 2 Mg/Ml 2 Ml Vial) 4 mg IV NOW STA Stop: 02/09/24 20:49 Last Admin: 02/09/24 21:26 Dose: 4 mg Documented By: ANDREA Imaging Data Radiologist's Impression: Chest CTA 02/09/24 20:48 Exam(s): CTA CHEST W/WO Contrast IV Amt: 118 cc opti 320 EXAM: CT Angiography Chest Without and With Intravenous Contrast CLINICAL HISTORY: Reason for exam: back and chest pain. TECHNIQUE: Axial computed tomographic angiography images of the chest without and with intravenous contrast. CTDI is 64 mGy and DLP is 1701.08 mGy-cm. Automated exposure control was utilized for the study. A dose lowering technique was utilized adhering to the principles of ALARA. MIP reconstructed images were created and reviewed. CONTRAST: Patient received 118 cc opti 320 of IV contrast COMPARISON: CT 12/14/2021 FINDINGS: Pulmonary arteries: No pulmonary embolism. Aorta: Normal caliber aorta. No acute aortic syndrome. Lungs: No consolidation or interstitial edema. No suspicious pulmonary nodule. Pleural space: Unremarkable. Heart: Heart size is normal. Mild CAD. Bones/joints: No acute abnormality within the osseous structures. No fracture. Mild degenerative changes in the spine without stenosis. Soft tissues: Unremarkable. Lymph nodes: Unremarkable. IMPRESSION: No acute abnormality within the chest. Electronically signed by: Bryant Navarro MD 02/10/24 00:41 AM Discharge Plan Visit Data Chief Complaint: Illness Stated Complaint: BACK PAIN, LT RASTAFARIAN PAIN, LIGHTHEADED, SOB ED Provider: Michael Rangel Discharge Problem: Chest pain, Back pain, Generalized weakness Discharge Instructions Interventions: ED Discharge Assessment Last Done: 02/10/24 02:29
--- NOTE | 2024-02-10 00:42 | CT Scan Report ---
Exam(s): CTA CHEST W/WO Contrast IV Amt: 118 cc opti 320 EXAM: CT Angiography Chest Without and With Intravenous Contrast CLINICAL HISTORY: Reason for exam: back and chest pain. TECHNIQUE: Axial computed tomographic angiography images of the chest without and with intravenous contrast. CTDI is 64 mGy and DLP is 1701.08 mGy-cm. Automated exposure control was utilized for the study. A dose lowering technique was utilized adhering to the principles of ALARA. MIP reconstructed images were created and reviewed. CONTRAST: Patient received 118 cc opti 320 of IV contrast COMPARISON: CT 12/14/2021 FINDINGS: Pulmonary arteries: No pulmonary embolism. Aorta: Normal caliber aorta. No acute aortic syndrome. Lungs: No consolidation or interstitial edema. No suspicious pulmonary nodule. Pleural space: Unremarkable. Heart: Heart size is normal. Mild CAD. Bones/joints: No acute abnormality within the osseous structures. No fracture. Mild degenerative changes in the spine without stenosis. Soft tissues: Unremarkable. Lymph nodes: Unremarkable. IMPRESSION: No acute abnormality within the chest. Electronically signed by: Bryant Navarro MD 02/10/24 00:41 AM
--- NOTE | 2024-02-10 02:13 | History & Physical Report ---
Date of Service February 10, 2024 Assessment & Plan (1) Chest pain: (2) Back pain: (3) Chronic renal insufficiency, stage III (moderate): (4) Atrophy of left kidney: (5) Generalized weakness: (6) Hypertension: (7) Restless leg syndrome: (8) Numbness and tingling of both feet: (9) Sleep apnea: (10) Hyperparathyroidism: Plan Chest pain/back pain- The patient will be admitted to telemetry for serial cardiac enzymes, serial EKG's, cardiac rhythm monitoring Patient did have an echocardiogram in the outpatient setting on 01/24/2024, with ejection fraction 55-60%, mild AR, mild to moderate MR CT angiography PE protocol was negative for PE Should be considered for stress echocardiogram prior to discharge CKD stage III/atrophic left kidney- Patient creatinine was 1.71, with base 1.52-1.84 She did receive angiography dye Placed on NSS at 125 MLS per hour x 1 L, then recheck laboratories later this morning Atrophic left kidney is a new finding on CT scan workup Hold losartan and spironolactone for now Continue clonidine transdermal weekly patc Follows with nephrology in the outpatient setting Dr. Ricardo Hogue GERD/hiatal hernia- Not on treatment at this point Will give pantoprazole 40 mg IV now, and then should be discharged on some form of treatment Symptoms of chest pain and back pain may be secondary to this diagnosis, if cardiac workup is negative CT scan abdomen and pelvis added to assess for possible gallbladder disease, which was negative Restless leg syndrome/worsening bilateral foot numbness, tingling and pain- Continue ropinirole 0.5 mg at bedtime Order lower extremity arterial Dopplers due to decreased pedal pulses bilaterally to assess for possible arterial insufficiency History of Present Illness Chief Complaint: The patient presents to the emergency department with complaint of generalized weakness over the past couple days, and then about 5:00 this evening developed acute onset of chest pain and back pain while in [place] . Primary Care Provider: Inderjit Aquino MD The patient is a 68-year-old female with a past medical history including hypertension, CKD stage III, endometrial hyperplasia with atypia, vertigo, hypertension, peripheral neuropathy and vitamin D deficiency. She presents to the emergency department complaint of generalized weakness over the past few days, and acute onset of 5:00 this evening of acute chest and back pain while sitting in [place] with [place] . Her reports that the pain was very severe, and for that reason she was brought to the ED for assessment. She also notes that her abnormal sensation of intermittent numbness, tingling and pain in bilateral lower extremities has worsened over the past few months. Allergies Allergy/AdvReac Type Severity Reaction Status Date / Time celecoxib [From Celebrex] Allergy Intermediate Rash Unverified 01/04/24 08:55 codeine Allergy Unknown SICK AND Verified 01/04/24 08:55 LOOPY morphine Allergy Unknown SICK AND Verified 01/04/24 08:55 LOOPY amlodipine Allergy Verified 01/04/24 08:55 lidocaine AdvReac Intermediate Heart Unverified 01/04/24 08:55 Palpitations Home Medications Medication Instructions Recorded Confirmed Type ropinirole 0.25 mg tablet 0.5 mg PO QPM 07/02/20 01/04/24 History clonidine 0.2 mg/24 hr weekly 0.2 mg transdermal WK 10/27/21 01/04/24 History transdermal patch gabapentin 300 mg capsule 300 mg PO HS 10/27/21 01/04/24 History losartan 50 mg tablet 50 mg PO BID 10/27/21 01/04/24 History buspirone 5 mg tablet 5 mg PO BID 12/20/23 01/04/24 History clonidine HCl 0.1 mg tablet 0.1 mg PO BID PRN hypertensive 12/20/23 01/04/24 Rx emergency #20 tabs spironolactone 25 mg tablet 25 mg PO DAILY 12/20/23 01/04/24 History cholecalciferol (vitamin D3) 50 50 mcg PO DAILY #30 caps 01/04/24 01/04/24 Rx mcg (2,000 unit) capsule Past Med/Surg History Problem List (Updated 02/10/24 @ 05:43 by Pancho Castorena MD) Hyperparathyroidism Numbness and tingling of both feet Restless leg syndrome Atrophy of left kidney Generalized weakness (Acute) Back pain (Acute) Chest pain (Acute) Chronic renal insufficiency, stage III (moderate) Palpitations Endometrial hyperplasia with atypia Vertigo Hypertension Medical History (Updated 02/10/24 @ 05:43 by Pancho Castorena MD) Arteriovenous malformation of liver Uterine polyp History of kidney stones Hiatal hernia Anxiety Sleep apnea Does not have CPAP yet, recent diagnosis. Asthma COLD TEMPERATURE INDUCED AND COUGHING INDUCED Hyperlipidemia Hypertension Surgical History Hx of colonoscopy History of cystoscopy X2 - ONE FOR STONE REMOVAL Hx of dilation and curettage X2 Hx of parathyroidectomy X2 Family History Father Prostate cancer Daughter Thyroid cancer Social History Smoking Status: Never smoker Second Hand Exposure: No; Do You Dip or Chew Tobacco: No; Hx Alcohol Use: No Hx Substance Use: No Preferred Language: Palauan Communication Ability: Effective Poll Clerk Required: No Beliefs That Will Affect Care: None Current Living Situation: Spouse Feels Safe at Home: Yes Assistive Devices: Glasses Review of Systems Review of Systems: The patient denies palpitations, cough, lower extremity swelling, sore throat, fevers, chills, sweats, weight change, nausea, vomiting, diarrhea , constipation, abdominal pain, pelvic pain, blood in urine or stool, dysuria, urinary frequency or urgency, lightheadedness, dizziness, headache, memory loss, loss of consciousness, rash, abnormal bruising or bleeding, focal or generalized weakness, numbness or tingling in arms, generalized arthralgias or myalgias, back or neck pain, or night sweats. The review of systems is otherwise negative other than for that already noted above, and at least 10 systems have been reviewed. Physical Exam Physical Exam: The patient is awake, alert and oriented 3, well developed and well nourished, normocephalic and atraumatic, lying in bed and in no acute distress. HEENT--PERRL, EOMI, mucous membranes and oropharynx mildly dry. Neck--supple. No JVD. No bruits. Thyroid normal, trachea midline, no adenopathy. Heart--normal S1 and S2. No murmurs, rubs or gallops. Lungs--clear bilaterally, no respiratory distress, no accessory muscle use. Abdomen--normal bowel sounds and soft. Nontender. Nondistended Extremities-- No edema. Decreased pedal pulses bilaterally. Feet mildly cool Dermatologic--normal skin turgor, normal color, no abnormal lymph nodes, no rash. Neurologic--cranial nerves II through XII grossly intact. Rheumatologic--normal range of motion. Psychiatric--normal affect. Results & Data Results & Data Vital Signs (Past 12 Hours) Vital Signs Temp Pulse Pulse Resp BP BP Pulse Ox 02/10/24 01:00 54 L 13 126/78 94 02/10/24 00:27 56 L 14 133/78 94 02/10/24 00:00 56 L 12 125/78 95 02/09/24 23:30 67 16 125/68 97 02/09/24 23:04 63 18 112/75 97 02/09/24 23:00 61 16 112/75 95 02/09/24 22:54 59 L 02/09/24 21:57 63 19 147/80 H 97 02/09/24 21:25 76 19 171/91 H 100 02/09/24 20:40 96 02/09/24 19:59 61 19 171/94 H 97 02/09/24 19:37 36.4 C L 66 16 181/96 H 100 O2 Del Method 02/10/24 01:00 Room Air 02/10/24 00:27 Room Air 02/10/24 00:00 Room Air 02/09/24 23:30 Room Air 02/09/24 23:04 Room Air 02/09/24 23:00 Room Air 02/09/24 22:54 02/09/24 21:57 Room Air 02/09/24 21:25 Room Air 02/09/24 20:40 Room Air 02/09/24 19:59 Room Air 02/09/24 19:37 Room Air Laboratory Results Laboratory Results WBC 6.72 K/ul (4.8-10.8) 02/09/24 20:00 RBC 4.39 M/uL (4.20-5.40) 02/09/24 20:00 Hgb 12.5 g/dl (12.0-16.0) 02/09/24 20:00 Hct 38.9 % (37.0-47.0) 02/09/24 20:00 MCV 88.6 fL (80.0-100.0) 02/09/24 20:00 MCH 28.5 pg (25.0-34.0) 02/09/24 20:00 MCHC 32.1 g/dL (32.0-36.0) 02/09/24 20:00 RDW Std Deviation 44.5 fL (36.4-46.3) 02/09/24 20:00 RDW Coeff of Monie 13.7 % (11.5-14.5) 02/09/24 20:00 Plt Count 198 K/uL (130-400) 02/09/24 20:00 MPV 10.9 fL (9.4-12.4) 02/09/24 20:00 Immature Gran % (Auto) 0.6 % 02/09/24 20:00 Neut % (Auto) 66.7 % 02/09/24 20:00 Lymph % (Auto) 21.0 % 02/09/24 20:00 Crane % (Auto) 7.0 % 02/09/24 20:00 Eos % (Auto) 4.0 % 02/09/24 20:00 Baso % (Auto) 0.7 % 02/09/24 20:00 Neut # (Auto) 4.48 K/uL (1.40-6.50) 02/09/24 20:00 Lymph # (Auto) 1.41 K/uL (1.20-3.40) 02/09/24 20:00 Crane # (Auto) 0.47 K/uL (0.11-0.59) 02/09/24 20:00 Eos # (Auto) 0.27 K/uL (0.00-0.50) 02/09/24 20:00 Baso # (Auto) 0.05 K/uL (0.00-0.20) 02/09/24 20:00 Immature Gran # (Auto) 0.04 K/uL (0.01-0.20) 02/09/24 20:00 ESR 13 mm/hr (0-30) 02/09/24 20:00 Sodium 141 mmol/L (136-145) 02/09/24 20:00 Potassium 4.7 mmol/L (3.5-5.1) 02/09/24 20:00 Chloride 106 mmol/L (98-107) 02/09/24 20:00 Carbon Dioxide 27 mmol/L (21-32) 02/09/24 20:00 Anion Gap 8 (3-11) 02/09/24 20:00 BUN 27 mg/dl (6-23) H 02/09/24 20:00 Creatinine 1.71 mg/dl (0.6-1.2) H 02/09/24 20:00 Est Cr Clr Drug Dosing 32.1 ml/min 02/09/24 20:00 Est GFR ( Amer) 35.0 ml/min 02/09/24 20:00 Est GFR (Non-Af Amer) 30.2 ml/min 02/09/24 20:00 BUN/Creatinine Ratio 15.8 (10-20) 02/09/24 20:00 Glucose 99 mg/dl (70-99(Fasting)) 02/09/24 20:00 Calcium 10.2 mg/dl (8.6-10.3) 02/09/24 20:00 Magnesium 1.9 mg/dl (1.7-2.4) 02/09/24 20:00 Total Bilirubin 0.6 mg/dl (0.2-1.0) 02/09/24 20:00 AST 19 U/L (13-39) 02/09/24 20:00 ALT 21 U/L (7-52) 02/09/24 20:00 Alkaline Phosphatase 141 U/L (34-104) H 02/09/24 20:00 Troponin I High Sens 3.3 pg/ml (0-14) 02/10/24 01:34 Total Protein 7.2 gm/dl (6.0-8.3) 02/09/24 20:00 Albumin 4.5 gm/dl (3.4-5.0) 02/09/24 20:00 Globulin 2.7 gm/dl (2.5-4.0) 02/09/24 20:00 Albumin/Globulin Ratio 1.7 (0.9-2) 02/09/24 20:00 TSH 1.977 uIu/ml (0.300-4.500) 02/09/24 20:00 Urine Color Yellow 02/09/24 Unknown Urine Appearance Clear (Clear) 02/09/24 Unknown Urine pH 8.0 (4.5-7.5) H 02/09/24 Unknown Ur Specific [place] 1.013 (1.000-1.030) 02/09/24 Unknown Urine Protein Negative (Negative) 02/09/24 Unknown Urine Glucose (UA) Negative (Negative) 02/09/24 Unknown Urine Ketones Negative (Negative) 02/09/24 Unknown Urine Blood Negative (Negative) 02/09/24 Unknown Urine Nitrite Negative (Negative) 02/09/24 Unknown Urine Bilirubin Negative (Negative) 02/09/24 Unknown Urine Urobilinogen Negative (Negative) 02/09/24 Unknown Ur Leukocyte Esterase Negative (Negative) 02/09/24 Unknown Impressions Chest CTA 02/09/24 20:48 Exam(s): CTA CHEST W/WO Contrast IV Amt: 118 cc opti 320 EXAM: CT Angiography Chest Without and With Intravenous Contrast CLINICAL HISTORY: Reason for exam: back and chest pain. TECHNIQUE: Axial computed tomographic angiography images of the chest without and with intravenous contrast. CTDI is 64 mGy and DLP is 1701.08 mGy-cm. Automated exposure control was utilized for the study. A dose lowering technique was utilized adhering to the principles of ALARA. MIP reconstructed images were created and reviewed. CONTRAST: Patient received 118 cc opti 320 of IV contrast COMPARISON: CT 12/14/2021 FINDINGS: Pulmonary arteries: No pulmonary embolism. Aorta: Normal caliber aorta. No acute aortic syndrome. Lungs: No consolidation or interstitial edema. No suspicious pulmonary nodule. Pleural space: Unremarkable. Heart: Heart size is normal. Mild CAD. Bones/joints: No acute abnormality within the osseous structures. No fracture. Mild degenerative changes in the spine without stenosis. Soft tissues: Unremarkable. Lymph nodes: Unremarkable. IMPRESSION: No acute abnormality within the chest. Electronically signed by: Bryant Navarro MD 02/10/24 00:41 AM Abdomen/Pelvis CT 02/10/24 02:04 Exam(s): CT ABDOMEN + PELVIS Without Contrast EXAM: CT Abdomen and Pelvis Without Intravenous Contrast CLINICAL HISTORY: Epigastric Pain. TECHNIQUE: Axial computed tomography images of the abdomen and pelvis without intravenous contrast. CTDI is 27.35 mGy and DLP is 1287.21 mGy-cm. Automated exposure control was utilized for the study. A dose lowering technique was utilized adhering to the principles of ALARA. COMPARISON: CT abdomen and pelvis 06/04/2019 FINDINGS: Lung bases: Unremarkable. No mass. No consolidation. ABDOMEN: Liver: Unremarkable. Gallbladder and bile ducts: Unremarkable. No calcified stones. No ductal dilation. Pancreas: Unremarkable. No ductal dilation. Spleen: Unremarkable. No splenomegaly. Adrenals: Unremarkable. No mass. Kidneys and ureters: Atrophic left kidney. Simple appearing bilateral renal cysts are present, no follow up is needed. The kidneys are otherwise unremarkable. No hydronephrosis. Stomach and bowel: Unremarkable. No obstruction. No mucosal thickening. PELVIS: Appendix: Normal appendix. Bladder: Unremarkable. No stones. Reproductive: Hysterectomy. ABDOMEN and PELVIS: Intraperitoneal space: Unremarkable. No free air. No significant fluid collection. Bones/joints: No acute fracture. No dislocation. Soft tissues: Small fat-containing umbilical hernia. Vasculature: Mild atherosclerosis. No abdominal aortic aneurysm. Lymph nodes: Unremarkable. No enlarged lymph nodes. IMPRESSION: 1. No acute finding in the abdomen or pelvis. 2. Atrophic left kidney. Electronically signed by: Araseli Espinosa MD 02/10/24 05:39 AM Code Status & VTE Plan Code Status Full code VTE Prophylaxis Plan VTE Prophylaxis will be ordered: Yes PG Care Time/CCT Total # of Minutes Spent Total Time Spent with Patient: Total time spent is greater than 50% in coordination of care (as documented) at patient's floor/unit and/or counseling patient: Coding Level of Care Code 16247 INT INP/OBS CARE 3/75MIN Diagnoses Chest pain R07.9 Back pain M54.9 Chronic renal insufficiency, stage III (moderate) N18.30 Atrophy of left kidney N26.1 Generalized weakness R53.1 Hypertension I10 Restless leg syndrome G25.81 Numbness and tingling of both feet R20.0; R20.2 Sleep apnea G47.30 Hyperparathyroidism E21.3
[2024-02-10] MEDS ORDERED: ONDANSETRON INJ 2 MG/ML 2 ML VIAL IV PRN (02:29)
[2024-02-10] MEDS: SODIUM CHLORIDE 0.9% 1,000 ML IV SCH (02:48)
[2024-02-10] MEDS: PANTOprazole 40 MG in SYRINGE 0 ML IV ONE (02:48)
--- NOTE | 2024-02-10 05:40 | CT Scan Report ---
Exam(s): CT ABDOMEN + PELVIS Without Contrast EXAM: CT Abdomen and Pelvis Without Intravenous Contrast CLINICAL HISTORY: Epigastric Pain. TECHNIQUE: Axial computed tomography images of the abdomen and pelvis without intravenous contrast. CTDI is 27.35 mGy and DLP is 1287.21 mGy-cm. Automated exposure control was utilized for the study. A dose lowering technique was utilized adhering to the principles of ALARA. COMPARISON: CT abdomen and pelvis 06/04/2019 FINDINGS: Lung bases: Unremarkable. No mass. No consolidation. ABDOMEN: Liver: Unremarkable. Gallbladder and bile ducts: Unremarkable. No calcified stones. No ductal dilation. Pancreas: Unremarkable. No ductal dilation. Spleen: Unremarkable. No splenomegaly. Adrenals: Unremarkable. No mass. Kidneys and ureters: Atrophic left kidney. Simple appearing bilateral renal cysts are present, no follow up is needed. The kidneys are otherwise unremarkable. No hydronephrosis. Stomach and bowel: Unremarkable. No obstruction. No mucosal thickening. PELVIS: Appendix: Normal appendix. Bladder: Unremarkable. No stones. Reproductive: Hysterectomy. ABDOMEN and PELVIS: Intraperitoneal space: Unremarkable. No free air. No significant fluid collection. Bones/joints: No acute fracture. No dislocation. Soft tissues: Small fat-containing umbilical hernia. Vasculature: Mild atherosclerosis. No abdominal aortic aneurysm. Lymph nodes: Unremarkable. No enlarged lymph nodes. IMPRESSION: 1. No acute finding in the abdomen or pelvis. 2. Atrophic left kidney. Electronically signed by: Araseli Espinosa MD 02/10/24 05:39 AM
--- NOTE | 2024-02-10 08:05 | Ultrasound Report ---
US arterial duplex LE BI CLINICAL HISTORY: b/l numbness, decreased pulses COMPARISON STUDY: None. FINDINGS: Ankle-brachial indices were not performed due to the portable study. There are monophasic n ormal velocity waveforms seen within the right posterior tibial and distal bilateral peroneal arterie s. The remaining bilateral lower extremity arterial systems demonstrate normal biphasic to triphasic waveforms and velocities. No evidence for arterial occlusion. IMPRESSION: 1. No significant stenosis or occlusion within the bilateral lower extremity arterial systems. 2. Monophasic normal velocity waveforms within the right posterior tibial and distal bilateral perone al arteries. This can be seen in the setting of diffuse atherosclerotic disease. ACT 112: Negative or not required by law. Electronically signed by: Jhonatan Scherer M.D. 02/10/2024 8:04 AM
[2024-02-10] MEDS: ACETAMINOPHEN 325 MG TAB PO PRN (08:11)
[2024-02-10] MEDS: CHECK CLONIDINE PATCH PLACEMENT SCH (08:57)
[2024-02-10 12:14] LABS: BUN Creatinine Ratio 13.5 (10-20); Calcium 9.2 mg/dl (8.6-10.3); Creatinine Clr Calc Pharmacy 32.3 ml/min; Est GFR (African American) 35.3 ml/min; Est GFR (Non-African American) 30.5 ml/min; Potassium 4.3 mmol/L (3.5-5.1)
--- NOTE | 2024-02-10 12:47 | Electrocardiogram Report ---
Test Reason : Blood Pressure : / mmHG Vent. Rate : 067 BPM Atrial Rate : 067 BPM P-R Int : 188 ms QRS Dur : 074 ms QT Int : 404 ms P-R-T Axes : 067 -13 044 degrees QTc Int : 426 ms Normal sinus rhythm Normal ECG When compared with ECG of 26-OCT-2023 20:50, Borderline criteria for Anterior infarct are no longer Present Confirmed by Inderjit Augustine ([id number]) on 02/10/2024 12:46:49 PM Referred By: REFERRED SELF Confirmed By:Anthony Augustine
--- NOTE | 2024-02-10 13:20 | Hospitalist Progress Note ---
Date of Service February 10, 2024 Assessment & Plan (1) Chest pain: (2) Back pain: (3) Chronic renal insufficiency, stage III (moderate): (4) Atrophy of left kidney: (5) Generalized weakness: (6) Hypertension: (7) Restless leg syndrome: (8) Numbness and tingling of both feet: (9) Sleep apnea: (10) Hyperparathyroidism: Plan Chest pain/back pain- Chest pain is now resolved EKG and troponin have been normal Patient did have an echocardiogram in the outpatient setting on 01/24/2024, with ejection fraction 55-60%, mild AR, mild to moderate MR CT angiography PE protocol was negative for PE Patient agreed to get the stress test CKD stage III/atrophic left kidney- Patient creatinine was 1.71, with base 1.52-1.84 She did receive angiography dye Placed on NSS at 125 MLS per hour x 1 L, then recheck laboratories later this morning Atrophic left kidney is a new finding on CT scan workup Hold losartan and spironolactone for now Continue clonidine transdermal weekly patc Follows with nephrology in the outpatient setting Dr. Ricardo Hogue GERD/hiatal hernia- Not on treatment at this point Will give pantoprazole 40 mg IV now, and then should be discharged on some form of treatment Symptoms of chest pain and back pain may be secondary to this diagnosis, if cardiac workup is negative CT scan abdomen and pelvis added to assess for possible gallbladder disease, which was negative Restless leg syndrome/worsening bilateral foot numbness, tingling and pain- Continue ropinirole 0.5 mg at bedtime Order lower extremity arterial Dopplers due to decreased pedal pulses bilaterally to assess for possible arterial insufficiency Hopefully discharge today if stress test is normal Admission and Anticipated Discharge Date Admission Date: February 10, 2024 Subjective Patient seen and examined emergency department, says her chest pain is resolved however she is willing to get a stress test Review of Systems Review of Systems: All systems reviewed are negative, apart from the ones contained in the history. Physical Exam Physical Exam: The patient is awake, alert and oriented 3, well developed and well nourished, normocephalic and atraumatic, lying in bed and in no acute distress. HEENT--PERRL, EOMI, mucous membranes and oropharynx mildly dry Neck--supple. No JVD. No bruits. Thyroid normal, trachea midline, no adenopathy. Heart--normal S1 and S2. No murmurs, rubs or gallops. Lungs--clear bilaterally, no respiratory distress, no accessory muscle use. Abdomen--normal bowel sounds and soft. Extremities--no cyanosis or clubbing. No edema. Dermatologic--normal skin turgor, normal color, no abnormal lymph nodes, no rash. Neurologic--cranial nerves II through XII grossly intact. Rheumatologic--normal range of motion. Psychiatric--normal affect. Results & Data Results & Data Vital Signs (Past 12 Hours) Vital Signs Pulse Pulse Resp BP BP Pulse Ox Pulse Ox 02/10/24 06:57 56 L 02/10/24 06:21 57 L 13 125/71 93 02/10/24 05:06 60 17 131/76 99 02/10/24 04:58 96 02/10/24 03:03 58 L 12 143/84 H 96 02/10/24 02:50 57 L 18 145/81 H 96 02/10/24 02:21 61 19 145/81 H 97 02/10/24 02:03 62 20 140/79 97 02/10/24 01:33 61 18 135/79 96 O2 Del Method O2 Del Method 02/10/24 06:57 02/10/24 06:21 02/10/24 05:06 02/10/24 04:58 Room Air 02/10/24 03:03 02/10/24 02:50 Room Air 02/10/24 02:21 02/10/24 02:03 Room Air 02/10/24 01:33 Room Air PG Care Time/CCT Total # of Minutes Spent Total Time Spent with Patient: Total time spent is greater than 50% in coordination of care (as documented) at patient's floor/unit and/or counseling patient: Coding Level of Care Code 37428 SUB INP/OBS CARE 2/35MIN Diagnoses Chest pain R07.9 Back pain M54.9 Chronic renal insufficiency, stage III (moderate) N18.30 Atrophy of left kidney N26.1 Generalized weakness R53.1 Hypertension I10 Restless leg syndrome G25.81 Numbness and tingling of both feet R20.0; R20.2 Sleep apnea G47.30 Hyperparathyroidism E21.3 Time Spent (min) 35
--- NOTE | 2024-02-10 14:13 | Discharge Summary ---
Date of Service February 10, 2024 Admission HPI Per Admitting Provider The patient is a 68-year-old female with a past medical history including hypertension, CKD stage III, endometrial hyperplasia with atypia, vertigo, hypertension, peripheral neuropathy and vitamin D deficiency. She presents to the emergency department complaint of generalized weakness over the past few days, and acute onset of 5:00 this evening of acute chest and back pain while sitting in [place] . Her reports that the pain was very severe, and for that reason she was brought to the ED for assessment. She also notes that her abnormal sensation of intermittent numbn ess, tingling and pain in bilateral lower extremities has worsened over the past few months. Principal Diagnosis chest pain Discharge Exam The patient is awake, alert and oriented 3, well developed and well nourished, normocephalic and atraumatic, lying in bed and in no acute distress. HEENT--PERRL, EOMI, mucous membranes and oropharynx mildly dry Neck--supple. No JVD. No bruits. Thyroid normal, trachea midline, no adenopathy. Heart--normal S1 and S2. No murmurs, rubs or gallops. Lungs--clear bilaterally, no respiratory distress, no accessory muscle use. Abdomen--normal bowel sounds and soft. Extremities--no cyanosis or clubbing. No edema. Dermatologic--normal skin turgor, normal color, no abnormal lymph nodes, no rash. Neurologic--cranial nerves II through XII grossly intact. Rheumatologic--normal range of motion. Psychiatric--normal affect. Discharge Data Allergies Allergy/AdvReac Type Severity Reaction Status Date / Time celecoxib [From Celebrex] Allergy Intermediate Rash Unverified 02/10/24 08:06 codeine Allergy Unknown SICK AND Verified 02/10/24 08:06 LOOPY morphine Allergy Unknown SICK AND Verified 02/10/24 08:06 LOOPY amlodipine Allergy Verified 02/10/24 08:06 lidocaine AdvReac Intermediate Heart Unverified 02/10/24 08:06 Palpitations Consultations 02/10/24 02:00 ED Decision to Admit Stat Ordered Studies 02/09/24 20:48 CT angio chest dissec wo/w con Stat 02/10/24 02:04 CT abd pelvis wo con Stat US arterial duplex LE BI Routine Hospital Course (1) Chest pain: (2) Back pain: (3) Chronic renal insufficiency, stage III (moderate): (4) Atrophy of left kidney: (5) Generalized weakness: (6) Hypertension: (7) Restless leg syndrome: (8) Numbness and tingling of both feet: (9) Sleep apnea: (10) Hyperparathyroidism: Plan Chest pain/back pain- Chest pain is now resolved EKG and troponin have been normal Patient did have an echocardiogram in the outpatient setting on 01/24/2024, with ejection fraction 55-60%, mild AR, mild to moderate MR CT angiography PE protocol was negative for PE Patient agreed to get the stress test However 3 minutes into the stress test, her blood pressure climbed to the 220s systolics and the test was aborted. However she states she did not experience any chest pain. CKD stage III/atrophic left kidney- Patient creatinine was 1.71, with base 1.52-1.84 She did receive angiography dye Placed on NSS at 125 MLS per hour x 1 L, then recheck laboratories later this morning Atrophic left kidney is a new finding on CT scan workup Hold losartan and spironolactone for now Continue clonidine transdermal weekly patc Follows with nephrology in the outpatient setting Dr. Ricardo Hogue GERD/hiatal hernia- Not on treatment at this point Will give pantoprazole 40 mg IV now, and then should be discharged on some form of treatment Symptoms of chest pain and back pain may be secondary to this diagnosis, if cardiac workup is negative CT scan abdomen and pelvis added to assess for possible gallbladder disease, w hich was negative Restless leg syndrome/worsening bilateral foot numbness, tingling and pain- Continue ropinirole 0.5 mg at bedtime Order lower extremity arterial Dopplers due to decreased pedal pulses bilaterally to assess for possible arterial insufficiency Discharge today, follow-up with regular PCP. Patient has appointment on Tuesday Total Time Total Time Spent Total Time Spent (In Minutes): 35 Discharge Plan Discharge Items Patient Disposition: Home - Self-Care Reason For Visit: CHEST AND EPIGASTRIC PAIN Discharge Diagnosis: chest pain Activity: Resume your previous activity Non-emergency contact: Primary Care Provider Call non-emergency contact if: you have any medication questions Follow-up/Referrals: Inderjit Aquino MD [Primary Care Provider] - Diet: Regular Addtl Attending Provider Instructions: Please make appointment to follow-up with her regular PCP Pending Studies at Discharge: No Stand-Alone Forms: My [facility], Smoking Cessation Medications and DC Order Prescriptions: New aspirin 81 mg tablet,delayed release (DR/EC) 81 mg PO DAILY Qty: 30 0RF Continued ropinirole 0.25 mg tablet 0.5 mg PO QPM spironolactone 25 mg tablet 25 mg PO QAM buspirone 5 mg tablet 5 mg PO BID clonidine HCl 0.1 mg tablet 0.1 mg PO BID PRN (Reason: hypertensive emergency) Qty: 20 2RF Rx Instructions: As of 02/10/24 pt hasn't had to take this medication yet. losartan 50 mg tablet 50 mg PO BID clonidine 0.2 mg/24 hr patch weekly 0.2 mg transdermal WK Rx Instructions: Tue gabapentin 300 mg capsule 300 mg PO HS multivitamin Tablet 1 tab PO QAM atorvastatin 40 mg tablet 40 mg PO HS Discharge Orders: Discharge Order (Routine); Ordered 02/10/24 Ordered By: Sanchez Morales Admission Data Admit Date/Time: 02/10/24 02:13 Attending Provider: Sanchez Morales Admit Provider: Pancho Castorena Primary Care Provider: Inderjit Aquino Other Providers: Pancho Castorena Coding Level of Care Code 34133 INP/OBS DISCH >30 MIN Diagnoses Chest pain R07.9 Back pain M54.9 Chronic renal insufficiency, stage III (moderate) N18.30 Atrophy of left kidney N26.1 Generalized weakness R53.1 Hypertension I10 Restless leg syndrome G25.81 Numbness and tingling of both feet R20.0; R20.2 Sleep apnea G47.30 Hyperparathyroidism E21.3 Time Spent (min) 35
--- NOTE | 2024-02-10 19:58 | XCELERA ---
[id number] \\[email or web address]_[email or web address]\[id number]
[2024-02-10] MEDS ORDERED: rOPINIRole HCL 0.25 MG TABLET PO SCH (21:00)
== END 2024-02-10 14:35 | disposition home or self-care (01) ==
LOC: ED 19:33 → EDINP 19:33 → SUATTDRO 02-10 02:13 → EDINP 02-10 02:29